=== PATIENT | female | born 1970 | race Caucasian/White ===

== ENCOUNTER 2024-09-28 02:45 | Inpatient (IN) | payer OTHER, SELFPAY ==
[2024-09-27 22:44] VITALS: BP 104/77
[2024-09-27 23:59] VITALS: BMI 27.1
[2024-09-28] VITALS (19 sets, daily range): BP systolic 82–116; BP diastolic 46–71; BMI 27.2
[2024-09-28] MEDS: TORADOL 30 MG IV (00:03)
[2024-09-28 00:05] LABS: % Basophils 0.8 % (0-2); % Eosinophils 1.9 % (0-6); % Immature Granulocytes 0.6 % (0-0.5); % Lymphocytes 33.8 % (20.5-51.1); % Monocytes 10.2 % (1.7-9.3); % Neutrophils 52.7 % (42.2-75.2); Absolute Basophils 0.1 10^3/uL (0-0.2); Absolute Eosinophils 0.1 10^3/uL (0-0.7); Absolute Lymphocytes 2.5 10^3/uL (1.2-3.4); Absolute Monocytes 0.7 10^3/uL (0.1-0.6); Absolute Neutrophils 3.8 10^3/uL (1.4-6.5); Hematocrit 36.4 % (37.0-47.0); Hemoglobin 12.3 g/dL (12.0-16.0); Mean Corp Hgb Conc. 33.8 g/dL (33.0-37.0); Mean Corpuscular Hgb 29.7 pg (27.0-31.0); Mean Corpuscular Volume 87.9 fL (81.0-99.0); Mean Platelet Volume 9.3 fL (7.4-10.4); Nucleated Red Blood Cells % 0 %; Platelet Count 242 10^3/uL (130-400); Red Blood Cell Count 4.14 10^6/uL (4.20-5.40); Red Cell Dist. Width 12.8 % (11.5-14.5); White Blood Cell Count 7.3 10^3/uL (4.8-10.8)
[2024-09-28 00:06] LABS: Urine Albumin 1+ (Neg - Trace); Urine Bilirubin Negative (Negative); Urine Character Slightly Cloudy (Clear); Urine Color Yellow; Urine Glucose Negative (Negative); Urine Ketone Negative (Negative); Urine Leukocyte 2+ (Negative); Urine Nitrite Positive (Negative); Urine Occult Blood 3+ (Negative); Urine Specific Gravity 1.025 (<1.030); Urine Urobilinogen Negative (Neg - 1+)
[2024-09-28 00:32] LABS: Urine Bacteria Many (Negative); Urine White Cell >100 /HPF (0-5)
[2024-09-28 00:57] LABS: ALT (SGPT) 29 U/L (0-35); AST (SGOT) 28 U/L (14-36); Albumin 3.8 g/dl (3.5-5.0); Alkaline Phosphatase 67 U/L (38-126); Blood Urea Nitrogen 16 mg/dl (7-17); Calcium 8.9 mg/dl (8.4-10.2); Carbon Dioxide 25 mmol/L (22-30); Chloride 103 mmol/L (98-107); Estimated Creatinine Clearance 90 ml/min; Glucose 113 mg/dl (70-99); Sodium 135 mmol/L (135-145); Total Bilirubin 0.4 mg/dl (0.2-1.3); Total Protein 6.5 g/dl (6.3-8.2); eGFR > 60.00
[2024-09-28 01:08] LABS: HCG, Serum Qualitative Screen Negative
[2024-09-28] MEDS: ROCEPHIN 1000 MG IV (01:16)
--- NOTE | 2024-09-28 01:49 | ED.GENMED ---
History of Present Illness
General
Chief Complaint: Flank Pain
Source: patient
Exam Limitations: none
Time Seen by Provider: 09/27/24 23:37
History of Present Illness
History of Present Illness:
This is a 54 year old female that come in with c/o right flank and lower abd pain. States that she has pain that comes from the back around to the abd. State that there is pressure when she urinated. States that she was seen at [facility] and had
surgery on Saturday with a stent place for a 7 mm stone on the left. States that the stent was not in the right place and she pulled it out. States that she has had chills, nausea, diarrhea, headache and urinary burning.
Past History
Past History
ED Past Medical History: None, Psychiatric (Anxiety, ) and Other (Renal calculus); Negative Asthma, HTN, Hypercholesterolemia or NIDDM
ED Past Surgical History: Appendectomy and Urological (Left renal stent removed)
Social History
Tobacco: Non-smoker
Alcohol: Occasional
Personal: Other ()
Living: with family
Review of Systems
Review of Systems
All Other Systems: ROS reviewed and negative except as documented in HPI and ROS
Constitutional: Reports chills; Denies fever
EENT: Reports no symptoms
Respiratory: Reports no symptoms; Denies cough or trouble breathing
Cardiac: Reports no symptoms; Denies chest pain
ABD/GI: Reports abdominal pain, nausea and diarrhea; Denies vomiting
: Reports dysuria and flank pain (right sided)
Musculoskeletal: Reports no symptoms
Skin: Reports no symptoms
Neurological: Reports headache; Denies dizzy
Psychiatric: Reports no symptoms
Phy Exam
General Physical Exam
General Presentation: mild distress
General age: appears stated age
General Skin: warm and dry
General Habitus: normal
General Mental: alert
General Hydration: appears well hydrated
ENT Exam
ENT Exam: TM's normal, pharynx normal and neck supple
Eye Exam
Eye Exam: EOMI
Cardiovascular Exam
Cardiovascular Exam: regular rate/rhythm, no edema, no murmur and normal peripheral pulses
Pulmonary Exam
Pulmonary Exam: lungs clear, no respiratory distress, no rales, chest non tender, no crackles, no rhonchi, no wheezing and no cough
Gastrointestinal Exam
Gastrointestinal Exam: normal bowel sounds, soft, no organomegaly, no pulsatile mass, non distended, cva tenderness (Right sided) and tender (Right lower tenderness with palpation)
Musculoskeletal Exam
Musculoskeletal Exam: full ROM and no edema
Skin Exam
Skin Exam: normal color, warm/dry, no rash and no petechia
Psychiatric Exam
Psychiatric Exam: normal mood/affect
Course
Orders/Labs/Results
Orders:
Orders
09/27/24 23:45
Urinalysis Reflex To Culture Urgent
Date Specimen was Collected: 09/27/24
Time Specimen was Collected: 23:36
Urine Microscopic Reflex Cult Urgent
Urine Culture Urgent
LESLEY Source: U
Specimen Description:
Date Specimen was Collected: 09/27/24
Time Specimen was Collected: 23:36
09/27/24 23:51
0.9% Sodium Chloride 1000 ml [Nss] 1,000 ml IV BOLUS
Ketorolac [Toradol] 30 mg IV NOW STA
Test Result ONCE
09/27/24 23:56
Complete Blood Count/With Diff Urgent
09/28/24 00:02
CT Abd/pel Without Iv Or Oral Urgent
Reason For Exam: right flank pain
09/28/24 00:38
Comprehensive Metabolic Panel Urgent
HCG, Serum Qualitative Screen Urgent
09/28/24 00:58
CefTRIAXone [Rocephin] 1,000 mg IV NOW STA
09/28/24 01:10
Sterile Water [Sterile Water For Injection] 10 ml .[address]TE .[facility]
09/28/24 02:09
HYDROmorphone [Dilaudid] 1 mg IV NOW STA
Ondansetron Injectable [Zofran] 4 mg IV NOW STA
09/28/24 02:23
Consult Urology [UROLOGY CONSULT] Urgent
Consulting Provider: Antwan Martínez
Was physician already notified: Yes
09/28/24 02:30
Admit/Transfer Patient As Directed
Co-Sign Provider:
Level of Care: Inpatient admission
Assign to:: Medical/Surgical
Physician / Group: Andrew
Diagnosis: Ureterolithiasis, UTI
Reason for Hospitalization: Ureterolithiasis, UTI
Expected length of stay greater than two midnights?: Yes
ELOS- Estimated Length of Stay in days: 2
I certify the patient meets the requirements for IP care: Yes
Code Status As Directed
Resuscitation Status: Full Code
PRN Pain Medication Management As Directed
May give lesser potent ordered pain med per pt: Yes
preference::
Protocol:: Medication orders for pain may be administered in a
manner that supports deferring to patient preference
when the pt is:
- Requesting an ordered lesser potent pain medication.
Least to most potent pain medications are defined
as: acetaminophen < NSAID < tramadol < opioids
(morphine, oxycodone, hydromorphone).
- Requesting a lesser dose of the same medication IF
ORDERED.
- Requesting a less intrusive route of administration
if both routes are prescribed by the provider (PO <
IV).
Abnormal Lab Results
09/27/24 09/27/24 09/28/24
23:45 23:56 00:38
RBC 4.14 L 10^6/uL
(4.20-5.40)
Hct 36.4 L %
(37.0-47.0)
Absolute Monos (auto) 0.7 H 10^3/uL
(0.1-0.6)
Immature Gran % 0.6 H %
(0-0.5)
Monocytes % 10.2 H %
(1.7-9.3)
Glucose 113 H mg/dl
(70-99)
Ur Occult Blood Reflex 3+ A
(Negative)
Urine Nitrite (Reflex) Positive A
(Negative)
Leukocyte Esterase Rfl 2+ A
(Negative)
Urine RBC 3-6 A /HPF
(0-2)
Urine WBC (Reflex) >100 A /HPF
(0-5)
Urine Bacteria (Reflex) Many A
(Negative)
Urine Albumin (Reflex) 1+ A
(Neg - Trace)
09/27/24 23:56
09/28/24 00:38
Hyperglycemia. Urine positive for infection.
Vital Signs
Initial and Last Documented VS:
Initial Vital Signs
Temp Pulse Resp BP Pulse Ox
98.5 F 90 16 104/77 99
09/27/24 22:44 09/27/24 22:44 09/27/24 22:44 09/27/24 22:44 09/27/24 22:44
Last Documented Vital Signs
Temp Pulse Resp BP Pulse Ox
98.5 F 63 14 106/54 97
09/27/24 22:44 09/28/24 02:34 09/28/24 02:34 09/28/24 02:34 09/28/24 02:34
MDM/Problems Addressed
Differential Diagnosis Includes:
renal calculus, UTI
MDM/Problems Addressed:
This is a 54 year old female that comes in with c/o right flank pain that comes around to the right lower abd.
Will get labs, urine. given IV fluids and medicate for pain.
Message sent to Dr. Martínez about CT results. Agrees that patient will need admission for IV antibiotics and he will see patient in the morning. He would like the Hospitalist to admit. Back into see patient. Reviewed CT results. Explained that she
will be admitted. Urologist to see patient in the morning. Hospitalist notified.
Chronic conditions affecting care:
Renal calculus
Acute Exacerbation and/or Progression of Chronic Illness:
Renal calculus
*Radiology
Radiology exam reviewed: radiology read reviewed (CT- 3 mm stone at the right UVJ, and clustered stones measuring up to 10mm at the right UPJ, with mild right hydronephrosis. No bowel obstruction. Gallbladder and appendix Incidentals: Moderate
stool burden. Hepatic hypodensities, too small to characterize. No abdominal aortic aneurysm. ) and all reviewed NAD by ED Provider (CT cont- No acute osseous abnormality. No acute abnormality within the visualized lungs. Bibasilar atelectasis. No
acute abnormality within the visualized soft tissues. )
*Pulse Oximetry
Patient hypoxic: no
*EKG
Interpreted by ED Provider?: NA
Rate: EKG- N/A
*Prepress Specialist Interpretation
Rate: Prepress Specialist- N/A
*Critical Care Note
Total Time (30-74mins, 75-104mins- exclusive of procedures): Not Applicable
ED Attending Note
-
Portions of this chart may have been created with voice recognition software.� Occasional wrong word or��sound alike� substitutions may have occurred due to the inherent limitations of voice recognition software.
Discharge Plan
Departure
Patient Disposition: Admit
Date of Disposition: 09/28/24
Time of Disposition: 02:12
Admit to: Med/Surg
Presentation/result/management discussed w/ accepting MD/DO: Hospitalist
Patient with high blood pressure during this ER visit?: No
Condition: Good
Covid-19: Not Applicable
Discharge Problem:
Right renal stone, Urinary tract infection
Interventions
Interventions:
*Risk Screen - Suicide Last Done: 09/27/24 22:44
*General Assessment Last Done: 09/27/24 23:46
*Neglect/Abuse Screening Last Done: 09/27/24 22:44
ED- Fall Risk Assessment Last Done: 09/28/24 00:10
*ED COVID-19 Vaccine History Last Done: 09/27/24 23:59
IY-Uhybuz-Gnlcaqfbrb Assessment Last Done: 09/28/24 00:10
ED-Female Genitourinary Assessment Last Done: 09/28/24 00:10
[2024-09-28] MEDS: ZOFRAN 4 MG IV ×2 (02:31→18:14)
--- NOTE | 2024-09-28 02:32 | HPS.HSE ---
Family Physician
-
Family Physician: Setw Chau, DO
Chief Complaint
-
Abd Pain
History of Present Illness
Patient is a 54y F with PMH significant for nephrolithiasis who presents to ED complaining of abd pain. Patient states that she initially developed pain on the R side on 08/20. She was evaluated at [facility] and advised that she had a small
(1mm) R sided kidney stone which she should pass without issue. She then developed L sided abdominal pain and returned to the ED at [facility] (about 2 weeks ago). She was admitted at that time for 7mm stone on the L and underwent cyst / stent
placement (09/17/24). Following discharge, patient developed burning with urination and noted that the stent was 'hanging out'. She contacted Urology at [facility] and was reportedly advised to pull the stent at home - which she did on 09/21.
Today, patient again developed R sided abdominal pain and continued dysuria.
She denies any fevers / chills, N/V/D, etc.
She presented to the ED for evaluation where she is noted to have multiple R sided ureteral stones with obstruction.
Medical History
Past Medical History
Past Medical History: Reports Other
Additional Past Medical History:
Nephrolithiasis
Past Surgical History: Reports Other
Additional Past Surgical History:
Ureteral Stent / Lithotripsies x 4 total
Appendectomy
Social History
Tobacco: Non-smoker
Alcohol: None
Drug: None
Family History
Family History: Not pertinent
Allergies / Home Medications
Allergies reflects when Allergies were last updated in [email or web address].
Home Medications with original date entered in [email or web address]
Allergy/Medication List:
Allergies
Allergy/AdvReac Type Severity Reaction Status Date / Time
No Known Allergies Allergy Verified 09/27/24 22:46
Home Medications
No Meds [No Current Medications] 09/27/24
Review of Systems
-
History Source: Patient
A 12 point ROS was completed and negative except as noted: Yes
Constitutional: Denies Fever or Chills
Respiratory: Denies Cough or Trouble Breathing
Cardiac: Denies Chest Pain or Palpitations
Abdomen/GI: Reports Abdominal Pain; Denies Nausea, Vomiting or Diarrhea
: Reports Dysuria, Frequency and Flank Pain; Denies Urgency
Musculoskeletal: Denies Joint Pain or Edema
Neurological: Denies Dizzy or Headache
Psych: Denies Depression or Anxiety
Physical Exam
Vital Signs
Vital Signs
Temp Pulse Resp BP Pulse Ox
98.5 F 77 14 99/48 97
09/27/24 22:44 09/28/24 01:20 09/28/24 01:20 09/28/24 01:20 09/28/24 01:20
Physical Exam
General: Other (54y F in no acute distress.)
HEENT: Moist mucous membranes
Respiratory: Clear; No Wheezes, Rales or Rhonchi
Cardiac: S1/S2 and Regular Rhythm; No Murmur
GI: Soft, Non Distended, Normal Bowel Sounds and Other (Mild RLQ tenderness without guarding.)
Genito-urinary: No costovertebral tender
Musculoskeletal: No Clubbing, No Cyanosis and No Edema
Neuro: AO x 3
Laboratory Results
-
09/27/24 23:56
09/28/24 00:38
Laboratory Results
Total Bilirubin 0.4 mg/dl (0.2-1.3) 09/28/24 00:38
AST 28 U/L (14-36) 09/28/24 00:38
ALT 29 U/L (0-35) 09/28/24 00:38
Alkaline Phosphatase 67 U/L (38-126) 09/28/24 00:38
Impression/Plan
-
A/P: Patient is a 54y F with PMH significant for kidney stones who presents to ED complaining of abdominal pain.
Right Ureterolithiasis with Obstruction
UTI secondary to the above
- Admit for further evaluation and treatment.
- Patient is afebrile and non-toxic. Does not meet criteria for SIRS / sepsis.
- Continue ceftriaxone pending culture data.
- Strain urine, tamsulosin, pain control, IVFs.
- Urology consulted for management of stone burden.
No other active / chronic health issues.
DVT Prophylaxis: SCDs
Code Status: Full
[2024-09-28] MEDS: DILAUDID 1 MG IV (02:34)
[2024-09-28] MEDS: NSS 1000 IV ×4 (03:55→17:06)
[2024-09-28] MEDS: DILAUDID 0.5 MG IV ×3 (04:11→17:14)
--- NOTE | 2024-09-28 04:37 | PTCARENOTE ---
pt admitted to room 2121. inst customer resolution specialist magaña and YESSI. Hat placed in toilet/strainer in bathroom. pt aware all urine must be strained. pt inst to call for assistance to bathroom since receiving iv narcotics. pt verb understanding.
--- NOTE | 2024-09-28 07:15 | CONS.URO ---
Consultation
-
Requesting Provider: [place]
Performing Provider: Mauricio
Reason for Consultation: cUTI, obstructing right ureteral stones
Medical History
History of Present Illness
54F w/ recent h/o nephrolithiasis treated [facility] as follows:
- new onset right flank pain 08/20
- seen in [facility] D - advised she had a 'small 1 mm right kidney stone which she could pass w/o issue'
- developed left renal colic - returned to [facility] ED (mid 08/2024) - admitted w/ 7 mm obstructing left ureteral stone
- s/p right ureteroscopy/laser lithotripsy/stent placement (09/17/24)
- stent was 'hanging out' after discharge - contacted [facility] Urology and advised to pull stent at home on 09/21
Now presents w/ new onset right flank and abdominal pain w/ dysuria
Denies F/C/N/V.
Past Medical History
Past Medical History: Other (nephrolithiasis)
Past Surgical History: Appendectomy and Urological (lithotripsy x4, ureteral stent placement)
Social History
Tobacco: Non-smoker
Alcohol: None
Drug: None
Personal: Single
Living: With Family
Employment: Employed
Family History
Family History: Reviewed & Not Pertinent
Allergies/Home Medications
Allergies
Allergy/AdvReac Type Severity Reaction Status Date / Time
No Known Allergies Allergy Verified 09/27/24 22:46
Home Medications
�Medication �Instructions �Recorded �Confirmed �Type
No Meds [No Current Medications] 09/27/24 09/27/24 History
Review of Systems
-
History Source: Patient
A 12 point Review of Systems was completed except as noted: Yes
Physical Exam
Vital Signs
Vital Signs
Temp Pulse Resp BP Pulse Ox
98.1 F 60 17 82/46 99
09/28/24 07:11 09/28/24 07:11 09/28/24 07:11 09/28/24 07:11 09/28/24 07:11
Lab / Testing Results
Laboratory Results
09/28/24 06:45
09/28/24 06:45
Physical Exam
General: Well Developed, Well Nourished and No Apparent Distress
HEENT: Normocephalic and Anicteric
Respiratory: Non Labored Respirations
Cardiac: Regular Rhythm
Breast: Deferred by me
GI: Soft, Non Tender and Non Distended
Rectal: Deferred by Provider
Genito-urinary: No Costovertebral Tend
Skin: Warm and Dry
Neuro: AO x 3, No Motor Deficits and Nonfocal/Grossly Intact
Psych: Calm and Intact Judgement
Assessment / Plan
-
cUTI
Obstructing right ureteral stones
H/o nephrolithiasis
WBC WNL
Cr WNL
UA => >100 WBCs, +nitrites, many bacteria
UCx => pending
CT imaging indicates partially obstructing cluster of right UPJ stones, mild hydronephrosis, and small obstructing right UVJ stone
Given UA findings indicative of infection w/o clear criteria for urosepsis, advised stent placement to relieve right-sided obstruction and facilitate clearance of infection.
Reviewed risks, benefits, alternatives, and potential complications of cystoscopy/stent placement - including but not limited to urosepsis, bleeding, ureteral/bladder injury, risk of ureteral stricture formation, need for additional
procedures/surgeries.
- Continue IV Ceftriaxone pending UCx S/S
- NPO
- To OR this afternoon for cysto + right stent placement
- Surgical consent will be signed in preop holding
- Outpatient F/U for definitive right-sided stone surgery
D/w patient.
D/w Hospitalist.
Data Reviewed
-
Total Time Spent with Patient (in minutes): 35
CT Scan: Image personally visualized and interpreted and Discussed with Patient
Lab Data: Labs Reviewed, Discussed with Physician and Discussed with Patient
Old Records: Reviewed
[2024-09-28 07:20] LABS: Hematocrit 34.4 % (37.0-47.0); Hemoglobin 11.3 g/dL (12.0-16.0); Mean Corp Hgb Conc. 32.8 g/dL (33.0-37.0); Mean Corpuscular Hgb 29.8 pg (27.0-31.0); Mean Corpuscular Volume 90.8 fL (81.0-99.0); Mean Platelet Volume 9.4 fL (7.4-10.4); Platelet Count 197 10^3/uL (130-400); Red Blood Cell Count 3.79 10^6/uL (4.20-5.40); Red Cell Dist. Width 12.8 % (11.5-14.5); White Blood Cell Count 4.6 10^3/uL (4.8-10.8)
[2024-09-28 07:27] LABS: Blood Urea Nitrogen 15 mg/dl (7-17); Calcium 8.1 mg/dl (8.4-10.2); Carbon Dioxide 25 mmol/L (22-30); Chloride 108 mmol/L (98-107); Estimated Creatinine Clearance 90 ml/min; Glucose 104 mg/dl (70-99); Potassium 4.2 mmol/L (3.5-5.1); Sodium 138 mmol/L (135-145); eGFR > 60.00
[2024-09-28] MEDS: ProAmatine 5 MG PO (08:32)
[2024-09-28] MEDS: FLOMAX 0.4 MG PO (08:32)
--- NOTE | 2024-09-28 10:23 | CM ---
Patient seen at bedside.
IA completed.
Case consult completed. Resources given Advance Directives.
Lives at home with daughter, in an apartment, 2 steps to enter
PLOF: Independent, drives, no assistive device
Denies DME
Denies Insecurities
OR this afternoon - cysto R stent placement
PCP: Stew Chau
Pharmacy: [facility] [place]
PLAN: Home, currently anticipate no needs
--- NOTE | 2024-09-28 11:33 | W.PN.UPDATE ---
Update Note
Progress Note Update
Seen and examined independent of pulmonary physician. Nonbillable note.
States of some nausea and mild episode of vomiting
Remains with flank pain
General: in no acute distress
HEENT: Moist mucous membranes
Respiratory: Clear; No Wheezes, Rales or Rhonchi
Cardiac: S1/S2 and Regular Rhythm; No Murmur
GI: Soft, Non Distended, Normal Bowel Sounds and Other (Mild RLQ tenderness without guarding.)
Genito-urinary: No costovertebral tender
Musculoskeletal: No Clubbing, No Cyanosis and No Edema
Neuro: AO x 3
A/P: Patient is a 54y F with PMH significant for kidney stones who presents to ED complaining of abdominal pain.
Right Ureterolithiasis with Obstruction
History of calcium oxalate renal stones
UTI secondary to the above
- Patient is afebrile and non-toxic. Does not meet criteria for SIRS / sepsis.
- Continue ceftriaxone pending culture data.
- Strain urine, tamsulosin if blood pressure can tolerate it, pain control, IVFs. Antinausea meds as needed.
- Urology consulted with plan for cystoscopy plus right stent placement.
No other active / chronic health issues.
DVT Prophylaxis: SCDs
Code Status: Full
--- NOTE | 2024-09-28 13:35 | W.SUR.PREOP ---
Pre-Operative Surgical Note
-
I have examined this patient prior to the performance of the scheduled procedure.
The patient's condition is unchanged from the time of the current History and
Physical and the patient is able to undergo the scheduled procedure.
--- NOTE | 2024-09-28 14:25 | W.IMMPOSTOP ---
Surgical Immed Post Op Note
-
Primary Surgeon: Mauricio
Pre-op Diagnosis: Obstructing right UVJ stone and UPJ stone cluster w/ hydronephrosis, cUTI
Post-op Diagnosis: Same
Procedure Performed: cystoscopy + right stent placement
Anesthesia Type: LMA
Specimen / Cultures: None/None
Estimated Blood Loss: Negligible
Drains: 4.7Fr x 22 cm JJ right ureteral stent
Complications: None
Operative Findings:
Stenotic urethral meatus requiring gentle dilation to pass cystoscope - inflammatory changes to bladder urothelium c/w cystitis.
No bladder tumors/stones.
Final KUB and cystoscopy confirming appropriate right ureteral stent position.
[2024-09-28] MEDS: DETROL LA 4 MG PO (15:18)
[2024-09-28] MEDS: Pyridium 200 MG PO (15:18)
--- NOTE | 2024-09-28 16:30 | W.PN.UPDATE ---
Update Note
Progress Note Update
Obstructing right UVJ stone + UPJ stone cluster
UTI - suspected based on UA
09/28: s/p cystoscopy + right stent placement (4.7Fr x 22 cm)
Plan:
- Transition to PO antibiotic treatment course pending UCx S/S
- F/U w/ Dr. Martínez in 1-2 weeks for preop visit to schedule right ULS
Discussed plan of care w/ pt and w/ daughter via telephone (Desiree).
[2024-09-29] MEDS: DILAUDID 0.5 MG IV ×2 (00:17→08:02)
--- NOTE | 2024-09-29 01:13 | PTCARENOTE ---
Pt states allergy to toradol and tramadol. She states it causes her to feel 'jittery' and 'anxious.' Added medications to allergy list per pt request.
[2024-09-29] MEDS: STERILE WATER FOR INJECTION 10 ML IV (01:58)
[2024-09-29] MEDS: ROCEPHIN 1000 MG IV (01:58)
[2024-09-29 03:10] VITALS: BP 104/73
[2024-09-29] MEDS: TYLENOL 650 MG PO ×2 (08:01→18:11)
[2024-09-29 08:30] VITALS: BP 89/55
--- NOTE | 2024-09-29 10:24 | CM ---
CM reviewed chart, patient seen bedside, reports no needs/concerns to CM at this time. CM will continue to follow for all discharge planning needs.
Plan; home with family, no needs likely.
--- NOTE | 2024-09-29 10:59 | W.PN.URO.CBU ---
Today's Communication / Plan
-
- Transition to PO antibiotic treatment course pending UCx S/S
- F/U w/ Dr. Martínez in 1-2 weeks for preop visit to schedule right ureteroscopy/laser lithotripsy
Assessment / Plan
-
54F with Obstructing right UVJ stone + UPJ stone cluster
UTI suspected based on UA
09/28: s/p cystoscopy + right stent placement (4.7Fr x 22 cm)
Plan:
- Transition to PO antibiotic treatment course pending UCx S/S
- F/U w/ Dr. Martínez in 1-2 weeks for preop visit to schedule right ureteroscopy/laser lithotripsy
Diagnosis
-
Date of Service: September 29, 2024
-
Patient Diagnosis:
R ureteral/renal stones
UTI
Post Op s/p R ureteral stent
Subjective
-
some low abd/pelvic pain but improved from pre stent
minimal frequency/urgency
some subjective chills
Objective
-
Vital Signs
Temp Pulse Resp BP Pulse Ox
98.1 F 57 16 89/55 94
09/29/24 08:30 09/29/24 08:30 09/29/24 08:30 09/29/24 08:30 09/29/24 08:30
Intake and Output
09/28/24 09/29/24 09/30/24
06:59 06:59 06:59
Intake Total 300 / 300 2160 / 2160
Output Total 1270 / 1270
Balance 300 / 300 890 / 890
Intake:
Oral fluids 960 / 960
IV fluids (Total) 300 / 300 1200 / 1200
Output:
Urine, Voided 1270 / 1270
Other:
Number of approximated MODERATE 3
amounts of urine
Number of approximated LARGE 1
amounts of urine
Laboratory Results
09/28/24 06:45
09/28/24 06:45
Physical Exam
-
General - well developed, well nourished, no acute distress
Chest - clear, unlabored
Abdomen - soft, non-tender
--- NOTE | 2024-09-29 11:21 | W.PN.HOSP.TC ---
Today's Communication/Plan
-
Continue with ceftriaxone
Await final susceptibility results
Assessment / Plan
Assessment / Plan
General: in no acute distress
HEENT: Moist mucous membranes
Respiratory: Clear; No Wheezes, Rales or Rhonchi
Cardiac: S1/S2 and Regular Rhythm; No Murmur
GI: Soft, Non Distended, Normal Bowel Sounds and mild suprapubic pain
Genito-urinary: No costovertebral tender
Musculoskeletal: No Clubbing, No Cyanosis and No Edema
Neuro: AO x 3
A/P: Patient is a 54y F with PMH significant for kidney stones who presents to ED complaining of abdominal pain.
Right Ureterolithiasis with Obstruction
History of calcium oxalate renal stones
UTI secondary to the above
- Patient is afebrile and non-toxic. Does not meet criteria for SIRS / sepsis.
- Continue ceftriaxone . Preliminary urine culture with E. coli. Await susceptibility results
- DC further fluids but antinausea meds as needed.
- Urology consulted status post cystoscopy with right stent placement. Outpatient follow-up for definitive stone management
No other active / chronic health issues.
DVT Prophylaxis: SCDs/lovenox
Code Status: Full
Anticipated Discharge: Within 24 hours
Subjective/Interval History
-
Date of Service: September 29, 2024
states of some bladder spasms
Objective Data
-
Vital Signs:
Vital Signs
Temp Pulse Resp BP Pulse Ox
98.1 F 57 16 89/55 94
09/29/24 08:30 09/29/24 08:30 09/29/24 08:30 09/29/24 08:30 09/29/24 08:30
I&O
09/28/24 09/29/24 09/30/24
06:59 06:59 06:59
Intake Total 300 / 300 2160 / 2160
Output Total 1270 / 1270
Balance 300 / 300 890 / 890
[2024-09-29 15:53] VITALS: BP 95/56
[2024-09-29] MEDS: LOVENOX 40 MG SC (18:11)
[2024-09-29] MEDS: Pyridium 200 MG PO ×2 (18:24→22:55)
--- NOTE | 2024-09-29 20:14 | PTCARENOTE ---
Patient being transferred to 2117 by wheelchair. Report given.
--- NOTE | 2024-09-29 20:27 | PTCARENOTE ---
Received pt from [address] [place] [address], [address], very pleasant. Oriented to new room, no needs at this time. Assessment on going.
[2024-09-29] MEDS: ROXICODONE 5 MG PO (21:02)
[2024-09-29 23:00] VITALS: BP 113/74
[2024-09-30] MEDS: ROXICODONE 5 MG PO ×4 (01:04→19:39)
[2024-09-30] MEDS: STERILE WATER FOR INJECTION 10 ML IV (01:05)
[2024-09-30] MEDS: ROCEPHIN 1000 MG IV (01:05)
[2024-09-30 08:00] VITALS: BP 116/75
--- NOTE | 2024-09-30 11:36 | W.PN.URO.CBU ---
Today's Communication / Plan
-
F/U culture sensitivity
Follow up with Dr. Martínez for ureteroscopy/stone removal outpatient
Assessment / Plan
-
54F with Obstructing right UVJ stone + UPJ stone cluster
UTI suspected based on UA
09/28: s/p cystoscopy + right stent placement (4.7Fr x 22 cm)
Plan:
- Fever curve trending down on abx
- E coli on urine culture. Transition to PO antibiotic treatment course pending sensitivities
- F/U w/ Dr. Martínez in 1-2 weeks for preop visit to schedule right ureteroscopy/laser lithotripsy
Diagnosis
-
Date of Service: September 30, 2024
-
Patient Diagnosis:
R ureteral/renal stones
UTI
Post Op s/p R ureteral stent
Subjective
-
some soreness from stent and dysuria
mild fever overnight
Objective
-
Vital Signs
Temp Pulse Resp BP Pulse Ox
98.0 F 56 16 116/75 95
09/30/24 08:00 09/30/24 08:00 09/30/24 08:00 09/30/24 08:00 09/30/24 08:00
Intake and Output
09/29/24 09/30/24 10/01/24
06:59 06:59 06:59
Intake Total 2160 / 2160
Output Total 1270 / 1270 1300 / 1300
Balance 890 / 890 -1300 / -1300
Intake:
Oral fluids 960 / 960
IV fluids (Total) 1200 / 1200
Output:
Urine, Voided 1270 / 1270 1300 / 1300
Other:
Number of approximated MODERATE 3
amounts of urine
Number of approximated LARGE 1
amounts of urine
Laboratory Results
09/28/24 06:45
09/28/24 06:45
Physical Exam
-
General - well developed, well nourished, no acute distress
Chest - clear
Abdomen - soft, non-tender
--- NOTE | 2024-09-30 11:58 | W.PN.HOSP.TC ---
Addendum entered and electronically signed by Faustino Barahona MD 09/30/24 12:25:
per urology-pt needs to be monitor for additional 24h. DC cancelled.
Original Note:
Today's Communication/Plan
-
po abx
op urology f/u
Assessment / Plan
Assessment / Plan
General: in no acute distress
HEENT: Moist mucous membranes
Respiratory: Clear; No Wheezes, Rales or Rhonchi
Cardiac: S1/S2 and Regular Rhythm; No Murmur
GI: Soft, Non Distended, Normal Bowel Sounds and mild suprapubic pain
Genito-urinary: No costovertebral tender
Musculoskeletal: No Clubbing, No Cyanosis and No Edema
Neuro: AO x 3
A/P: Patient is a 54y F with PMH significant for kidney stones who presents to ED complaining of abdominal pain.
Right Ureterolithiasis with Obstruction
History of calcium oxalate renal stones
UTI secondary to the above
- Patient is afebrile and non-toxic. Does not meet criteria for SIRS / sepsis.
- Continue ceftriaxone . Preliminary urine culture with E. coli. Pt eager to go home and get back to work. Will transition to po abx and f/u on the results.
- DC further fluids but antinausea meds as needed.
- Urology consulted status post cystoscopy with right stent placement. Outpatient follow-up for definitive stone management
No other active / chronic health issues.
DVT Prophylaxis: SCDs/lovenox
Code Status: Full
More than 30 minutes spent in discharge including
Final examination of the patient
Summarizing hospital stay
Instructions for continuing care to all relevant caregivers
Preparation of discharge records, prescriptions, and referral forms
Total time spent (in minutes): 52
Anticipated Discharge: Today
Subjective/Interval History
-
Date of Service: September 30, 2024
intermittent bladder spasms
tolerating po intake
wants to go home
Objective Data
-
Vital Signs:
Vital Signs
Temp Pulse Resp BP Pulse Ox
98.0 F 56 16 116/75 95
09/30/24 08:00 09/30/24 08:00 09/30/24 08:00 09/30/24 08:00 09/30/24 08:00
I&O
09/29/24 09/30/24 10/01/24
06:59 06:59 06:59
Intake Total 2160 / 2160
Output Total 1270 / 1270 1300 / 1300
Balance 890 / 890 -1300 / -1300
[2024-09-30 14:56] VITALS: BP 111/64
[2024-09-30] MEDS: LOVENOX 40 MG SC (17:51)
[2024-09-30 22:36] VITALS: BP 86/51
[2024-10-01 01:31] VITALS: BP 101/68
[2024-10-01] MEDS: ROCEPHIN 1000 MG IV (01:41)
[2024-10-01] MEDS: STERILE WATER FOR INJECTION 10 ML IV (01:42)
[2024-10-01] MEDS: ROXICODONE 5 MG PO (01:56)
[2024-10-01 07:50] VITALS: BP 132/79
[2024-10-01] MEDS: TYLENOL 650 MG PO (08:49)
[2024-10-01] MEDS: Pyridium 200 MG PO (08:49)
[2024-10-01] MEDS: ZOFRAN 4 MG IV (09:16)
--- NOTE | 2024-10-01 11:00 | CM ---
Reviewed the chart notes and spoke with the patient at the bedside. Patient anticipates being discharged to home with no needs identified at this time. The patient's daughter will provide transportation at discharge. CM continues to be available
to patient/family and is monitoring medical plan for needs at discharge.
Plan: Discharge to home when medically stable.
--- NOTE | 2024-10-01 11:15 | W.PN.HOSP.TC ---
Today's Communication/Plan
-
ID recs for abx course
Ertapenem
bowel regimen
Assessment / Plan
Assessment / Plan
General: in no acute distress
HEENT: Moist mucous membranes
Respiratory: Clear; No Wheezes, Rales or Rhonchi
Cardiac: S1/S2 and Regular Rhythm; No Murmur
GI: Soft, Non Distended, Normal Bowel Sounds and mild suprapubic pain
Genito-urinary: No costovertebral tender
Musculoskeletal: No Clubbing, No Cyanosis and No Edema
Neuro: AO x 3
A/P: Patient is a 54y F with PMH significant for kidney stones who presents to ED complaining of abdominal pain.
Right Ureterolithiasis with Obstruction
History of calcium oxalate renal stones
ESBL UTI
- Patient is afebrile and non-toxic. Does not meet criteria for SIRS / sepsis.
- DC Rocephin. Started Ertapenem. Susceptibility results noted. ? Bactrim as option.
- DC further fluids but antinausea meds as needed.
- Urology consulted status post cystoscopy with right stent placement. Outpatient follow-up for definitive stone management
- ID recs for abx.
Nausea due to constipation
-started bowel regimen
No other active / chronic health issues.
DVT Prophylaxis: SCDs/lovenox
Code Status: Full
Anticipated Discharge: Within 24 hours
Subjective/Interval History
-
Date of Service: October 01, 2024
states of some nausea
afebrile
having bladder spasms
Objective Data
-
Vital Signs:
Vital Signs
Temp Pulse Resp BP Pulse Ox
98.5 F 70 16 132/79 95
10/01/24 07:50 10/01/24 07:50 10/01/24 07:50 10/01/24 07:50 10/01/24 07:50
I&O
09/30/24 10/01/24 10/02/24
06:59 06:59 06:59
Intake Total 1090 / 1090 480 / 480
Output Total 1300 / 1300 2130 / 2130
Balance -1300 / -1300 -1040 / -1040 480 / 480
Data Reviewed
-
Total Time Spent with Patient (in minutes): 55
--- NOTE | 2024-10-01 11:49 | CON.ID ---
Consultation
-
Date/Time Consultation Requested: October 01, 2024 100
Date/Time Consultation Performed: October 01, 2024 1150
Requesting Provider: Dr. Faustino Barahona
Performing Provider: Dr. Terri Shah
Reason for Consultation: ESBL
Chief Complaint / Past History
Chief Complaint
Flank pain
History of Present Illness
54-year-old female with history of nephrolithiasis requiring interventions x 4 in the past who presented to the ER on September 28 complaining of flank pain. She was recently hospitalized at [facility] with obstructing left ureteral stone status
post laser lithotripsy and stent placement on September 17, 2024, stent was removed on September 21 since it was partially out. She then developed urinary incontinence, hematuria, right flank pain and burning with urination. She came to [facility] this time September 28. CAT scan showed obstructing right renal calculus. She was taken to the OR the same day status post cystoscopy, right stent placement. Urine culture positive for ESBL E. coli. Ceftriaxone changed to ertapenem
today. She feels improved today. No recent frequent UTI.
Past History
Additional Past Medical History:
Nephrolithiasis
Lithotripsies/stents
Appendectomy
Allergy History:
ketorolac [From Toradol] Allergy (Unverified 09/29/24 01:19)
Jittery/Anxiety
tramadol Allergy (Unverified 09/29/24 01:19)
Jittery/Anxiety
Medications Reviewed: Yes
Current Antibiotics:
s/p ceftriaxone
Ertapenem
Social History
Tobacco: Non-Smoker
Alcohol: None
Drug: None
Family History
Family History: Not Pertinent
Review of Systems
Review of Systems
General: Negative Fever, Chills or Change in Appetite
HEENT: Negative Sinus Problems, Headache or Pharyngitis
Cardiovascular: Negative Chest Pain or Dyspnea
Respiratory: Negative Dyspnea or Cough
Gasteroenterology: Negative Nausea, Vomiting or Diarrhea
Endocrine: Negative Weakness
Skin / Hair / Nails: Negative Rash
Neurological: Negative Dizziness
All systems: All other systems were reviewed and were negative
Vital Signs
Temp Pulse Resp BP Pulse Ox
98.5 F 70 16 132/79 95
10/01/24 07:50 10/01/24 07:50 10/01/24 07:50 10/01/24 07:50 10/01/24 07:50
Physical Exam
Physical Exam
Constitutional: No Acute Distress and Comfortable
Cardiovascular: Regular Rate and S1/S2
Pulmonary: Clear
Gastrointestinal: Soft, Non Tender, Non Distended and Normal Bowel Sounds
Genito-Urinary: Negative CVA Tenderness
Extremities: Negative Edema
Neurological: AO x 3
Lab / Diagnostic Study Results
09/28/24 06:45
09/28/24 06:45
Abs Immat Gran (auto) 0.0 10^3/uL (0-0.05) 09/27/24 23:56
Absolute Neuts (auto) 3.8 10^3/uL (1.4-6.5) 09/27/24 23:56
Absolute Lymphs (auto) 2.5 10^3/uL (1.2-3.4) 09/27/24 23:56
Absolute Monos (auto) 0.7 10^3/uL (0.1-0.6) H 09/27/24 23:56
Absolute Basos (auto) 0.1 10^3/uL (0-0.2) 09/27/24 23:56
Immature Gran % 0.6 % (0-0.5) H 09/27/24 23:56
Neutrophils % 52.7 % (42.2-75.2) 09/27/24 23:56
Lymphocytes % 33.8 % (20.5-51.1) 09/27/24 23:56
Monocytes % 10.2 % (1.7-9.3) H 09/27/24 23:56
Eosinophils % 1.9 % (0-6) 09/27/24 23:56
Basophils % 0.8 % (0-2) 09/27/24 23:56
Ur Squamous Epith Cells 3-5 /LPF (Few) 09/27/24 23:45
Microbiology Results
Micro:
09/27/24 23:45 Urine Culture - Final
Urine Escherichia coli - ESBL
09/28/24 CT a/p: 0.3 cm calculus at the right ureterovesical junction with mild right hydroureteronephrosis. Additional collection of small stones most likely layering in the right renal pelvis at the approximate level of the right ureteropelvic
junction.
Assessment / Plan
# Complicated ESBL-E.coli UTI
# Right obstructive uropathy s/p ureter stent 09/28/24.
- Can dc home on Bactrim DS 1 tab po bid x 14d.
Care Review
Plan reviewed with: Physician (Dr. Barahona)
[2024-10-01] MEDS: INVANZ 60 MG IV (11:56)
[2024-10-01] MEDS: SENOKOT-S 1 TABLET PO (11:56)
[2024-10-01] MEDS: MILK OF MAGNESIA 30 ML PO (11:56)
[2024-10-01 12:00] VITALS: BP 124/75
--- NOTE | 2024-10-01 12:26 | W.DCSUMMARY ---
Discharge Summary
Discharge Data
Date of Admission: 09/28/24
Date of Discharge: 10/01/24
-
Pending Results: No
Hospital Course
54 year-old female with past medical history of kidney stone status post intervention presenting from home with complaint of right flank pain.� Also underwent CT abdomen pelvis which showed patient had Right Ureterolithiasis with Obstruction.�
Eval by urology and underwent to the operating room. status post cystoscopy with right stent placement. Outpatient follow-up for definitive stone management.� Urine culture with ESBL. Stop ceftriaxone and give 1 dose of IV ertapenem. Infectious
disease consulted recommended patient can be switched to p.o. Bactrim for twice daily dosing for 14 days. Follow -up outpatient with Dr. Martínez. Also with some nausea secondary to constipation and was started on bowel regimen. Tolerating diet
otherwise. Patient remained afebrile and be discharged on p.o. Bactrim and no prior antibiotic allergies were discussed and noted..
Discharge Plan
-
Patient Disposition: Home (Routine Discharge)
Discharge Diagnosis/Procedures: Right ureteral stone status post cystoscopy and ureteral stent placement
Complicated ESBL Urinary tract infection
Condition: Fair
Diet: As tolerated
Activity: As tolerated
Driving Restrictions: As prior to admission
Referrals:
Stew Chau DO [Family Provider] - in less than 1 week
Antwan Martínez MD [Active] - (Please call [facility] after your discharge home to schedule a preop visit with Dr. Martínez in 1-2 weeks - Dr. Martínez will schedule you for outpatient kidney stone surgery and discuss the procedure with
you at that visit. )
Prescriptions:
New
sennosides-docusate sodium 8.6-50 mg Tablet
1 tab PO BID 14 Days Qty: 28 0RF
sulfamethoxazole-trimethoprim [Bactrim DS] 800-160 mg tablet
1 tab PO BID 14 Days Qty: 28 0RF
Discharge Orders:
Discharge Patient (As Directed); Ordered 10/01/24
Ordered By: Faustino Barahona
Discharge Date and Time
Print Language: BELARUSIAN
--- NOTE | 2024-10-01 13:29 | W.PN.URO.CBU ---
Today's Communication / Plan
-
Continue antibiotic
Outpatient follow up for stone procedure
Assessment / Plan
-
54F with Obstructing right UVJ stone + UPJ stone cluster
UTI suspected based on UA
09/28: s/p cystoscopy + right stent placement (4.7Fr x 22 cm)
Plan:
- ESBL E coli on urine culture. Recommend switch to PO Bactrim for total abx course per ID
- Stable for discharge from standpoint
- F/U w/ Dr. Martínez in 1-2 weeks for preop visit to schedule right ureteroscopy/laser lithotripsy
Diagnosis
-
Date of Service: October 01, 2024
-
Patient Diagnosis:
R ureteral/renal stones
UTI
Post Op s/p R ureteral stent
Subjective
-
no events
Objective
-
Vital Signs
Temp Pulse Resp BP Pulse Ox
98.5 F 70 16 132/79 95
10/01/24 07:50 10/01/24 07:50 10/01/24 07:50 10/01/24 07:50 10/01/24 07:50
Intake and Output
09/30/24 10/01/24 10/02/24
06:59 06:59 06:59
Intake Total 1090 / 1090 480 / 480
Output Total 1300 / 1300 2129
Balance -1300 / -1300 -1040 / -1040 480 / 480
Intake:
Oral fluids 1080 / 1080 480 / 480
IV piggybacks
Output:
Urine, Voided 1300 / 1300 2129
Other:
Number of approximated MODERATE 1
amounts of urine
How many times incontinent 1
MODERATE amount urine
Laboratory Results
09/28/24 06:45
09/28/24 06:45
Physical Exam
-
General - well developed, well nourished, no acute distress
== END 2024-10-01 14:44 | disposition home or self-care (01) | DRG 661 ==
LOC: 2 SOUTH 02:45
PROVIDERS: Clinical Nurse Specialist Family Health; ADMITTING PHYSICIAN Hospitalist; ATTENDING PHYSICIAN Hospitalist; CONSULT PHYSICIAN Surgery; EMERGENCY PHYSICIAN Student in an Organized Health Care Education/Training Program; FAMILY PHYSICIAN Family Medicine; OTHER PHYSICIAN Internal Medicine Infectious Disease
PROC: 0T768DZ Dilation of Right Ureter with Intraluminal Device, Via Natural or Artificial Opening Endoscopic (ICD-10-PCS; 2024-09-28)
DX: N20.2 Calculus of kidney with calculus of ureter (principal); N30.90 Cystitis, unspecified without hematuria
CPT/HCPCS: 74018; 74176; 76000; 80048; 80053; 81003; 81015; 84703; 85025; 85027; 87077; 87086; 87186; 96374; 96375; 99285; C2617; J1335

== ENCOUNTER 2024-10-09 15:25 | Inpatient (IN) | payer OTHER, SELFPAY ==
[2024-10-09 09:59] VITALS: BP 106/77
[2024-10-09 10:25] LABS: % Basophils 0.6 % (0-2); % Eosinophils 0.9 % (0-6); % Immature Granulocytes 0.4 % (0-0.5); % Lymphocytes 28.9 % (20.5-51.1); % Neutrophils 62.2 % (42.2-75.2); Absolute Basophils 0.1 10^3/uL (0-0.2); Absolute Eosinophils 0.1 10^3/uL (0-0.7); Absolute Lymphocytes 2.3 10^3/uL (1.2-3.4); Absolute Monocytes 0.6 10^3/uL (0.1-0.6); Hematocrit 38.8 % (37.0-47.0); Hemoglobin 13.1 g/dL (12.0-16.0); Mean Corp Hgb Conc. 33.8 g/dL (33.0-37.0); Mean Corpuscular Hgb 29.8 pg (27.0-31.0); Mean Corpuscular Volume 88.4 fL (81.0-99.0); Mean Platelet Volume 9.5 fL (7.4-10.4); Nucleated Red Blood Cells % 0 %; Platelet Count 246 10^3/uL (130-400); Red Blood Cell Count 4.39 10^6/uL (4.20-5.40); Red Cell Dist. Width 12.6 % (11.5-14.5); Urine Albumin 2+ (Neg - Trace); Urine Bilirubin 1+ (Negative); Urine Character Very Cloudy (Clear); Urine Color Brown; Urine Glucose Negative (Negative); Urine Ketone 1+ (Negative); Urine Leukocyte 2+ (Negative); Urine Nitrite Positive (Negative); Urine Occult Blood 4+ (Negative); Urine Specific Gravity 1.025 (<1.030); Urine Urobilinogen Negative (Neg - 1+)
[2024-10-09 10:40] LABS: ALT (SGPT) 18 U/L (0-35); AST (SGOT) 22 U/L (14-36); Albumin 4.1 g/dl (3.5-5.0); Alkaline Phosphatase 73 U/L (38-126); Blood Urea Nitrogen 28 mg/dl (7-17); Calcium 9.2 mg/dl (8.4-10.2); Carbon Dioxide 23 mmol/L (22-30); Chloride 105 mmol/L (98-107); Glucose 92 mg/dl (70-99); Potassium 4.5 mmol/L (3.5-5.1); Sodium 138 mmol/L (135-145); Total Bilirubin 0.5 mg/dl (0.2-1.3); Total Protein 6.9 g/dl (6.3-8.2); Urine Bacteria Few (Negative); Urine Squamous Cell 0-2 /LPF (Few); eGFR 54.13
[2024-10-09 10:41] LABS: Urine Red Blood Cell 90-100 /HPF (0-2)
[2024-10-09 11:23] VITALS: BMI 26.6
--- NOTE | 2024-10-09 11:32 | ED.GENMED ---
History of Present Illness
General
Chief Complaint: Flank Pain
Source: patient and records
Exam Limitations: none
Time Seen by Provider: 10/09/24 11:20
History of Present Illness
History of Present Illness:
54yoF with a history of kidney stones presenting for evaluation of flank pain. Patient was recently hospitalized from 09/28/2024 to 10/01/2024 for a kidney stone. Right ureteral stent was placed during that admission. Urine culture grew out ESBL E.
coli and she was discharged on a 14-day course of Bactrim. She was doing well for the first several days after discharge but reports worsening symptoms over the past few days. Patient reports right flank pain which radiates to the right lower
quadrant and vagina. The pain is severe. She was prescribed Toradol by the urology team and has been taking Tylenol without relief. She also reports chills but denies fevers. She is having significant pressure with urination as well as nausea
and vomiting. She called her urology team today and was advised to come to the ED for evaluation.
Past History
Past History
ED Past Medical History: None, Psychiatric (Anxiety, ) and Other (Renal calculus); Negative Asthma, HTN, Hypercholesterolemia or NIDDM
ED Past Surgical History: Appendectomy and Urological (Left renal stent removed)
Social History
Tobacco: Non-smoker
Alcohol: Occasional
Personal: Other ()
Living: with family
Phy Exam
Physical Exam
Physical Exam:
Appears uncomfortable, non-toxic
General Physical Exam
General age: appears stated age
General Skin: warm and dry
General Habitus: normal
General Mental: alert
ENT Exam
ENT Exam: normocephalic
Gastrointestinal Exam
Gastrointestinal Exam: soft, non distended and other (+RUQ tenderness and R CVA tenderness. Abdomen soft, non-distended. No guarding or rebound. )
Neurological Exam
Neurological Exam: alert
Solitario Coma Scale
Eye Opening: Spontaneous
Verbal Response: Oriented
Motor Response: Obeys Commands
GCS Total Score: 15
Skin Exam
Skin Exam: normal color and warm/dry
Psychiatric Exam
Psychiatric Exam: normal mood/affect
Course
Orders/Labs/Results
Orders:
Orders
10/09/24 10:14
Complete Blood Count/With Diff Urgent
Comprehensive Metabolic Panel Urgent
Urinalysis Reflex To Culture Urgent
Date Specimen was Collected: 10/09/24
Time Specimen was Collected: 10:05
Urine Microscopic Reflex Cult Urgent
Urine Culture Urgent
LESLEY Source: U
Specimen Description:
Date Specimen was Collected: 10/09/24
Time Specimen was Collected: 10:05
10/09/24 11:33
Ondansetron Injectable [Zofran] 4 mg .ROUTE .STK-MED ONE
10/09/24 11:35
0.9% Sodium Chloride 1000 ml [Nss] 1,000 ml IV BOLUS
HYDROmorphone [Dilaudid] 1 mg IV NOW STA
Ondansetron Injectable [Zofran] 4 mg IV NOW STA
10/09/24 11:45
CT Abd/pel Without Iv Or Oral Urgent
Comment:
Reason For Exam: R flank pain, ureteral stent in place
Piperacillin/Tazo 4.5 Gram [Zosyn] 4.5 gram in 100 ml IV NOW
10/09/24 12:26
Blood Culture Q30M
LESLEY Source: Blood/Venous
Specimen Description:
Blood Culture Q30M
LESLEY Source: Blood/Venous
Specimen Description:
10/09/24 13:45
Ondansetron Injectable [Zofran] 4 mg .ROUTE .STK-MED ONE
10/09/24 15:17
Admit/Transfer Patient As Directed
Co-Sign Provider:
Level of Care: Inpatient admission
Assign to:: Medical/Surgical
Physician / Group: veldanda
Diagnosis: infected right ureteral stone
Reason for Hospitalization: infected right ureteral stone
Expected length of stay greater than two midnights?: Yes
ELOS- Estimated Length of Stay in days: 2
I certify the patient meets the requirements for IP care: Yes
Code Status As Directed
Resuscitation Status: Full Code
PRN Pain Medication Management As Directed
May give lesser potent ordered pain med per pt: Yes
preference::
Protocol:: Medication orders for pain may be administered in a
manner that supports deferring to patient preference
when the pt is:
- Requesting an ordered lesser potent pain medication.
Least to most potent pain medications are defined
as: acetaminophen < NSAID < tramadol < opioids
(morphine, oxycodone, hydromorphone).
- Requesting a lesser dose of the same medication IF
ORDERED.
- Requesting a less intrusive route of administration
if both routes are prescribed by the provider (PO <
IV).
Abnormal Lab Results
10/09/24
10:14
BUN 28 H mg/dl
(7-17)
Creatinine 1.2 H mg/dL
(0.6-1.0)
Urine Ketones 1+ A
(Negative)
Ur Occult Blood Reflex 4+ A
(Negative)
Urine Nitrite (Reflex) Positive A
(Negative)
Urine Bilirubin 1+ A
(Negative)
Leukocyte Esterase Rfl 2+ A
(Negative)
Urine RBC 90-100 A /HPF
(0-2)
Urine WBC (Reflex) 11-15 A /HPF
(0-5)
Urine Bacteria (Reflex) Few A
(Negative)
Urine Albumin (Reflex) 2+ A
(Neg - Trace)
10/09/24 10:14
10/09/24 10:14
Vital Signs
Initial and Last Documented VS:
Initial Vital Signs
Temp Pulse Resp BP Pulse Ox
97.9 F 77 18 106/77 98
10/09/24 09:59 10/09/24 09:59 10/09/24 09:59 10/09/24 09:59 10/09/24 09:59
Last Documented Vital Signs
Temp Pulse Resp BP Pulse Ox
97.7 F 58 15 99/57 97
10/09/24 15:25 10/09/24 16:33 10/09/24 15:25 10/09/24 16:33 10/09/24 15:25
MDM/Problems Addressed
Differential Diagnosis Includes:
54yoF here with worsening R flank pain, chills, and n/v x 2 days. Recently hospitalized for kidney stone and ESBL UTI. Ureteral stent currently in place. Sent here by urology office. VSS. She is uncomfortable on exam and tearful. She is acutely
non-toxic appearing. +R CVA tenderness on exam. Differential diagnosis includes but is not limited to: UTI, pyelonephritis, stent colic
Initial ED plan: Labs and UA obtained in triage. Creatinine 1.2, up from 0.7 at time of discharge last week. White count within normal limits. UA is nitrite positive with 2+ leukocytes. Will discuss with urology. IV Dilaudid, Zofran, and fluid
bolus ordered for symptoms.
*Critical Care Note
Total Time (30-74mins, 75-104mins- exclusive of procedures): Not Applicable
Update Note
Update Note:
Case discussed with urology (Dr. Shannon). Urology suspecting infected stent and recommends blood cultures, CT, and admission. CT obtained which shows moderate R hydronephrosis. Stent is in satisfactory position. IV Zosyn ordered and patient
admitted for further management.
ED Attending Note
-
Portions of this chart may have been created with voice recognition software.� Occasional wrong word or��sound alike� substitutions may have occurred due to the inherent limitations of voice recognition software.
Discharge Plan
Departure
Patient Disposition: Admit
Date of Disposition: 10/09/24
Time of Disposition: 14:43
Presentation/result/management discussed w/ accepting MD/DO: Hospitalist
Discharge Problem:
Complicated urinary tract infection
Interventions
Interventions:
*Risk Screen - Suicide Last Done: 10/09/24 09:59
*General Assessment Last Done: 10/09/24 09:59
*Neglect/Abuse Screening Last Done: 10/09/24 09:59
ED- Fall Risk Assessment Last Done: 10/09/24 11:20
*ED COVID-19 Vaccine History Last Done: 10/09/24 11:19
CV-Oyliev-Rqhzyoujwj Assessment Last Done: 10/09/24 11:20
ED-Female Genitourinary Assessment Last Done: 10/09/24 11:20
[2024-10-09] MEDS: DILAUDID 1 MG IV (12:23)
[2024-10-09] MEDS: ZOFRAN 4 MG IV ×3 (12:23→21:15)
[2024-10-09] MEDS: NSS 1000 IV ×2 (12:23→18:22)
[2024-10-09] MEDS: ZOSYN 100 IV (12:36)
--- NOTE | 2024-10-09 15:19 | HPS.HSE ---
Family Physician
-
Family Physician: Stew Chau DO
Chief Complaint
-
right flank pain
History of Present Illness
54-year-old female past medical history of anxiety, renal stones, presenting for flank pain. He was hospitalized from 09/28 to 10/01 for kidney stone. Right ureteral stent was placed during that time. Urine culture grew ESBL E. coli patient was
discharged on 14-day course of Bactrim. She was doing well for the first several days on discharge but reports worsening symptoms over the past few days. She reports right flank pain which radiates down to right lower quadrant and vagina. Pain is
severe. Patient prescribed Toradol by urologist. Also with chills but no fever. Patient is having significant pressure with urination and nausea and vomiting. She had some clots in the urine.
Medical History
Past Medical History
Past Medical History: Reports Other (anxiety, renal stones)
Past Surgical History: Reports None
Social History
Tobacco: Non-smoker
Alcohol: None
Drug: None
Family History
Family History: Not pertinent
Allergies / Home Medications
Allergies reflects when Allergies were last updated in [employer].
Home Medications with original date entered in [employer]
Allergy/Medication List:
Allergies
Allergy/AdvReac Type Severity Reaction Status Date / Time
ketorolac [From Toradol] AdvReac Jittery/Anx Verified 10/09/24 09:58
iety
tramadol AdvReac Jittery/Anx Verified 10/09/24 09:58
iety
Home Medications
sulfamethoxazole 800 mg-trimethoprim 160 mg tablet (Bactrim DS) 1 tab PO BID 14 days #28 tabs 10/01/24
acetaminophen 325 mg tablet (Tylenol) 650 mg PO Q6HPRN PRN mild pain 10/09/24
docusate sodium 100 mg capsule (Colace) 100 mg PO Q48H 10/09/24
ibuprofen 200 mg tablet (Advil) 200 mg PO BIDPRN PRN mild pain 10/09/24
tamsulosin 0.4 mg capsule (Flomax) 0.4 mg PO DAILY 10/09/24
Review of Systems
-
History Source: Patient
A 12 point ROS was completed and negative except as noted: Yes
Constitutional: Reports No Symptoms
EENT: Reports No Symptoms
Respiratory: Reports No Symptoms
Cardiac: Reports No Symptoms
Abdomen/GI: Reports See HPI
: Reports See HPI
Musculoskeletal: Reports No Symptoms
Skin: Reports No Symptoms
Neurological: Reports No Symptoms
Endocrine: Reports No Symptoms
Hematologic/Lymphatic: Reports No Symptoms
Psych: Reports No Symptoms
Physical Exam
Vital Signs
Vital Signs
Temp Pulse Resp BP Pulse Ox
97.9 F 77 18 106/77 98
10/09/24 09:59 10/09/24 09:59 10/09/24 09:59 10/09/24 09:59 10/09/24 09:59
Physical Exam
General: Well Developed, Well Nourished and No Apparent Distress
HEENT: NormoCephalic, Moist mucous membranes and Atraumatic
Respiratory: Clear
Cardiac: S1/S2 and Regular Rhythm; No Murmur or Rub
GI: Soft, Non Tender, Non Distended and Normal Bowel Sounds; No Organomegaly
Rectal: Deferred by Provider
Musculoskeletal: No Clubbing, No Cyanosis and No Edema
Skin: No Rash
Neuro: Nonfocal/grossly intact
Laboratory Results
-
10/09/24 10:14
10/09/24 10:14
Laboratory Results
Total Bilirubin 0.5 mg/dl (0.2-1.3) 10/09/24 10:14
AST 22 U/L (14-36) 10/09/24 10:14
ALT 18 U/L (0-35) 10/09/24 10:14
Alkaline Phosphatase 73 U/L (38-126) 10/09/24 10:14
Data Reviewed
-
Lab Data: Labs Reviewed by me
Old Records: Reviewed
Impression/Plan
-
IMPRESSION:
PLAN:
# Right hydronephrosis/right hydroureter secondary to possibly infected right ureteral stent
# Recent ESBL E. coli UTI
-Patient not septic
-CT abdomen pelvis shows moderate right hydronephrosis, right hydroureter due to a right sided stent which is in satisfactory position with proximal loop within the region of the right renal pelvis and distal loop close in the urinary bladder, no
calculi present along the course
-IV fluids
-E. coli sensitive to Zosyn, continue Zosyn
-N.p.o.
-Zofran, Dilaudid
-Continue tamsulosin
# SHRUTI likely prerenal/Bactrim/ibuprofen
-IV fluids
Anxiety
History of renal stones
Full code
DVT prophylaxis�SCDs
N.p.o
[2024-10-09 15:25] VITALS: BP 85/53
--- NOTE | 2024-10-09 15:26 | EDRN ---
RN bedside to check VS. BP 85/53. Pt states she feels 'woozy'. Admitting MD made aware. NSS 500ml IV Bolus ordered. Pt advised. Will continue to monitor.
[2024-10-09] MEDS: NSS 500 IV (15:29)
[2024-10-09 16:33] VITALS: BP 99/57
--- NOTE | 2024-10-09 17:07 | W.PN.URO.CBU ---
Today's Communication / Plan
-
iv abs
Assessment / Plan
-
probablke complex uti georgina provide targeted icv abs christ if no relief will consider jj stent exchange await ct scan and cxs
Diagnosis
-
Date of Service: October 09, 2024
-
Patient Diagnosis:rt flank pain has jj stent with h/o esbl but bnl wbc and creatinine no fever but pain
Post Op Day:
Subjective
-
rt flank pain
Objective
-
Vital Signs
Temp Pulse Resp BP Pulse Ox
97.7 F 58 15 99/57 97
10/09/24 15:25 10/09/24 16:33 10/09/24 15:25 10/09/24 16:33 10/09/24 15:25
Laboratory Results
10/09/24 10:14
10/09/24 10:14
Review of Systems
-
: Flank Pain
Physical Exam
-
General - well developed, well nourished, no acute distress non toxic
Chest - clear bilaterally
Abdomen - soft, non-tender, positive bowel sounds, no CVAT, no incisional pain or distention
Genitalia - normal
Rectal - normal
Skin - warm & dry with no rash
Neuro - AOx3, no motor deficits
Extremities - no clubbing, no cyanosis, no edema
Incision - clean, dry
Dressing - clean, dry, intact
Care Review
Data Reviewed
Discussed with: Hospitalist and Nursing
[2024-10-09 18:21] VITALS: BP 93/54
[2024-10-09] MEDS: ZOSYN 50 IV ×2 (18:25→23:29)
[2024-10-09] MEDS: DILAUDID 0.5 MG IV (19:05)
[2024-10-09 20:40] VITALS: BP 108/57; BMI 29.6
[2024-10-09 23:00] VITALS: BP 99/53
[2024-10-09] MEDS: MORPHINE SULFATE 2 MG IV (23:28)
[2024-10-10] MEDS: NSS 1000 IV ×2 (03:09→20:22)
[2024-10-10] MEDS: ZOSYN 50 IV ×3 (05:07→18:32)
[2024-10-10] MEDS: DILAUDID 0.5 MG IV (05:07)
[2024-10-10 07:33] VITALS: BP 83/40
[2024-10-10 07:55] LABS: % Basophils 1.4 % (0-2); % Eosinophils 1.9 % (0-6); % Immature Granulocytes 0.3 % (0-0.5); % Lymphocytes 46.5 % (20.5-51.1); % Neutrophils 39.9 % (42.2-75.2); Absolute Basophils 0.1 10^3/uL (0-0.2); Absolute Eosinophils 0.1 10^3/uL (0-0.7); Absolute Lymphocytes 1.7 10^3/uL (1.2-3.4); Absolute Monocytes 0.4 10^3/uL (0.1-0.6); Absolute Neutrophils 1.4 10^3/uL (1.4-6.5); Hematocrit 35.3 % (37.0-47.0); Hemoglobin 11.6 g/dL (12.0-16.0); Mean Corp Hgb Conc. 32.9 g/dL (33.0-37.0); Mean Corpuscular Hgb 29.9 pg (27.0-31.0); Mean Platelet Volume 9.5 fL (7.4-10.4); Nucleated Red Blood Cells % 0 %; Platelet Count 185 10^3/uL (130-400); Red Blood Cell Count 3.88 10^6/uL (4.20-5.40); White Blood Cell Count 3.6 10^3/uL (4.8-10.8)
[2024-10-10 08:16] LABS: ALT (SGPT) 32 U/L (0-35); AST (SGOT) 42 U/L (14-36); Albumin 3.1 g/dl (3.5-5.0); Alkaline Phosphatase 73 U/L (38-126); Blood Urea Nitrogen 15 mg/dl (7-17); Calcium 8.5 mg/dl (8.4-10.2); Carbon Dioxide 24 mmol/L (22-30); Chloride 106 mmol/L (98-107); Estimated Creatinine Clearance 59 ml/min; Glucose 78 mg/dl (70-99); Potassium 4.7 mmol/L (3.5-5.1); Sodium 137 mmol/L (135-145); Total Bilirubin 0.9 mg/dl (0.2-1.3); Total Protein 5.7 g/dl (6.3-8.2); eGFR > 60.00
[2024-10-10] MEDS: COLACE 100 MG PO (09:14)
[2024-10-10] MEDS: FLOMAX 0.4 MG PO (09:14)
--- NOTE | 2024-10-10 09:35 | W.PN.HOSP.TC ---
Today's Communication/Plan
-
EKG
Troponin x 3
Continue IV Zosyn
GB US
Assessment / Plan
Assessment / Plan
# Right hydronephrosis/right hydroureter secondary to possibly infected right ureteral stent
discussed with Dr. Shannon, would tx with abx, but not remove stent currently
# Recent ESBL E. coli UTI (sens to Bactrim - which she was on and Zosyn)
was hospitalized 09/28-10/01/24
-Patient not septic
-CT abdomen pelvis shows moderate right hydronephrosis, right hydroureter due to a right sided stent which is in satisfactory position with proximal loop within the region of the right renal pelvis and distal loop close in the urinary bladder, no
calculi present along the course
-IV fluids
-E. coli sensitive to Zosyn, continue Zosyn
-Zofran, Dilaudid
-Continue tamsulosin
# SHRUTI likely prerenal/Bactrim/ibuprofen
-IV fluids
Better 28/1.2-->15/1.0
Acute epigastric pain. When contacted by nursing, ordered EKG and responded very soon thereafter
EKG is normal
Troponin ordered and is pending
Abdominal US ordered and is pending
Pt has no risk factors for early CAD (Neg fam hx, nonsmoker, nl Chol, no DM) and pain occurred at rest and is really in epigastric area. Doubt cardiac origin, more likely GB related.
Will check above studies, consider cardio eval, but for now await preliminary studies and pt is comfortable with this evaluation
Will allow diet after GBUS
Anxiety
History of renal stones
Full code
DVT prophylaxis�SCDs
Anticipated Discharge: > 48 hours
Subjective/Interval History
-
Date of Service: October 10, 2024
Called to see patient urgently for squeezing chest pain, though on examination pain was really in epigastrium, with tenderness over Bender's point and described as cramping pain
Rt Flank pain somewhat less severe currently
Objective Data
-
Labs:
Laboratory Results
10/10/24
07:03
WBC 3.6 L
Hgb 11.6 L
Hct 35.3 L
Plt Count 185 D
Sodium 137
Potassium 4.7
Chloride 106
Carbon Dioxide 24
BUN 15
Creatinine 1.0
Glucose 78
Calcium 8.5
Total Bilirubin 0.9
AST 42 H
ALT 32
Alkaline Phosphatase 73
Vital Signs:
Vital Signs
Temp Pulse Resp BP Pulse Ox
97.6 F 53 16 83/40 97
10/10/24 07:33 10/10/24 07:33 10/10/24 07:33 10/10/24 07:33 10/10/24 07:33
I&O
10/09/24 10/10/24 10/11/24
06:59 06:59 06:59
Intake Total 2059
Balance 2059
Review of Systems
-
History Source: Patient
Constitutional: Denies Fever
EENT: Reports No Symptoms Reported
Respiratory: Reports No Symptoms; Denies Cough
Cardiac: Reports No Symptoms and Chest Pain
Abdomen/GI: Reports Abdominal Pain (epigastric)
Genitourinary: Reports Flank Pain and Urgency
Musculoskeletal: Reports No Symptoms
Neuro: Reports No Symptoms
Physical Exam
-
General: Well Developed, Well Nourished and No Apparent Distress
HEENT: Normocephalic, Atraumatic and Moist Mucous Membranes
Respiratory: Clear to Auscultation; Negative Wheezes, Rales or Rhonchi
Cardiac: Regular Rhythm and S1/S2
GI: Soft and Tender (epigastric and Bender's point)
Genito-urinary: No Costovertebral Tender
Musculoskeletal: No Clubbing, No Cyanosis and No Edema
Neuro: Awake, Alert and Oriented
[2024-10-10 09:50] LABS: Troponin I < 0.012 ng/ml
--- NOTE | 2024-10-10 12:11 | W.PN.URO.CBU ---
Today's Communication / Plan
-
no gu interventioin
Assessment / Plan
-
pain somewhat better ur cx is negative and no whit count possible just sta-ent pain or non urologic pain will consider dstopping abs in light of neg cx
Diagnosis
-
Date of Service: October 10, 2024
-
Patient Diagnosis:
Post Op Day:
Patient Diagnosis:rt flank pain has jj stent with h/o esbl but bnl wbc and creatinine no fever but pain
Post Op Day:
Subjective
-
improved today
Objective
-
Vital Signs
Temp Pulse Resp BP Pulse Ox
97.6 F 53 16 83/40 97
10/10/24 07:33 10/10/24 07:33 10/10/24 07:33 10/10/24 07:33 10/10/24 07:33
Intake and Output
10/09/24 10/10/24 10/11/24
06:59 06:59 06:59
Intake Total 2059
Balance 2059
Intake:
Oral fluids 960 / 960
IV fluids (Total) 1000 / 1000
IV piggybacks 100 / 100
Other:
Number of approximated MODERATE 2
amounts of urine
Laboratory Results
10/10/24 07:03
10/10/24 07:03
Review of Systems
-
Abdomen/GI: Abdominal Pain
Physical Exam
-
General - well developed, well nourished, no acute distress
Chest - clear bilaterally
Abdomen - soft, non-tender, positive bowel sounds, no CVAT, no incisional pain or distention
Genitalia - normal
Rectal - normal
Skin - warm & dry with no rash
Neuro - AOx3, no motor deficits
Extremities - no clubbing, no cyanosis, no edema
Incision - clean, dry
Dressing - clean, dry, intact
Care Review
Data Reviewed
Discussed with: Hospitalist
CT Scan: Image Pers Reviewed
[2024-10-10] MEDS: ZOFRAN 4 MG IV (12:15)
[2024-10-10 15:39] VITALS: BP 87/50
[2024-10-10 18:30] VITALS: BP 98/57
[2024-10-10] MEDS: ROXICODONE 5 MG PO (20:23)
[2024-10-10] MEDS: SENOKOT 17.2 MG PO (20:23)
[2024-10-10] MEDS: TUMS CHEWABLE TABLET 400 MG PO (20:23)
[2024-10-10 23:30] VITALS: BP 124/56
[2024-10-11] MEDS: ZOSYN 50 IV ×5 (00:25→23:00)
[2024-10-11 06:19] LABS: Hemoglobin 12.5 g/dL (12.0-16.0); Mean Corp Hgb Conc. 32.9 g/dL (33.0-37.0); Mean Corpuscular Hgb 30.4 pg (27.0-31.0); Mean Corpuscular Volume 92.5 fL (81.0-99.0); Mean Platelet Volume 9.3 fL (7.4-10.4); Platelet Count 186 10^3/uL (130-400); Red Blood Cell Count 4.11 10^6/uL (4.20-5.40); Red Cell Dist. Width 12.5 % (11.5-14.5); White Blood Cell Count 3.8 10^3/uL (4.8-10.8)
[2024-10-11 06:31] LABS: ALT (SGPT) 29 U/L (0-35); AST (SGOT) 29 U/L (14-36); Albumin 3.2 g/dl (3.5-5.0); Alkaline Phosphatase 69 U/L (38-126); Blood Urea Nitrogen 14 mg/dl (7-17); Calcium 8.6 mg/dl (8.4-10.2); Carbon Dioxide 27 mmol/L (22-30); Chloride 104 mmol/L (98-107); Estimated Creatinine Clearance 65 ml/min; Glucose 98 mg/dl (70-99); Potassium 4.1 mmol/L (3.5-5.1); Sodium 138 mmol/L (135-145); Total Bilirubin 0.7 mg/dl (0.2-1.3); Total Protein 5.9 g/dl (6.3-8.2); eGFR > 60.00
[2024-10-11 06:34] LABS: Troponin I < 0.012 ng/ml
[2024-10-11 07:00] VITALS: BP 104/55
[2024-10-11] MEDS: FLOMAX 0.4 MG PO (08:08)
[2024-10-11 08:24] LABS: % Basophils 1.3 % (0-2); % Eosinophils 2.4 % (0-6); % Immature Granulocytes 0.3 % (0-0.5); % Lymphocytes 50.3 % (20.5-51.1); % Monocytes 9.2 % (1.7-9.3); % Neutrophils 36.5 % (42.2-75.2); Absolute Basophils 0.1 10^3/uL (0-0.2); Absolute Eosinophils 0.1 10^3/uL (0-0.7); Absolute Lymphocytes 1.9 10^3/uL (1.2-3.4); Absolute Monocytes 0.4 10^3/uL (0.1-0.6); Absolute Neutrophils 1.4 10^3/uL (1.4-6.5); Nucleated Red Blood Cells % 0 %
--- NOTE | 2024-10-11 08:39 | W.PN.HOSP.TC ---
Today's Communication/Plan
-
ID consult
continue IVF, Zosyn
Assessment / Plan
Assessment / Plan
# Right hydronephrosis/right hydroureter secondary to possibly infected right ureteral stent
Obstructing right UVJ stone and UPJ stone cluster w/ hydronephrosis,
underwent cysto and rt stent placement 09/[address] Shannon, would tx with abx, but not remove stent currently
# Recent ESBL sample obtained on 09/28, E. coli UTI (sens to Bactrim - which she was on and Zosyn). Symptoms worsened while on Bactrim and have dramatically improved on Zosyn.
was hospitalized 09/28-10/01/24
-Patient not septic
-CT abdomen pelvis shows: 1).There is moderate right hydronephrosis and right hydroureter due to presence of a right-sided stent which is in satisfactory position with its proximal loop coiled in the region of the right renal pelvis and distal loop
coiled in the urinary bladder.
No calculi are demonstrated along the course of the right ureteral stent
2).There is a 15 mm calculus/cluster of calculi in the lower pole of the right kidney
3). There is a 3 mm nonobstructing calculus in the lower pole of the left kidney
There is a 2.5 cm cyst in the anterior midportion of the left kidney
There is a 1 mm nonobstructing calculus in the upper pole of the left kidney
4). There are small calculi versus polyps in the gallbladder
-IV fluids
-Zofran, Dilaudid
-Continue tamsulosin
will plan on consulting Inf [facility] regarding abx. Input from Dr. Shannon appreciated
# SHRUTI likely prerenal/Bactrim/ibuprofen
-IV fluids
Better 28/1.2-->15/1.0-->14/0.9
Acute epigastric pain. When contacted by nursing, ordered EKG yesterday and repeated today
EKG is normal x2
Troponin ordered neg x2
Abdominal US ordered Neg
Pt has no risk factors for early CAD (Neg fam hx, nonsmoker, nl Chol, no DM) and pain occurred at rest and is really in epigastric area. Doubt cardiac origin, more likely GI related
Would consider cardio eval as outpatient, though currently do not believe epigastric pain is of cardiac origin
tolerating diet
Anxiety
History of renal stones
Full code
DVT prophylaxis�SCDs
Anticipated Discharge: 24 - 48 hours
Subjective/Interval History
-
Date of Service: October 11, 2024
still with epigastric pressure, but less intense. Pt relates that she gets similar symptoms if eats fatty food (such as ice cream).
Objective Data
-
Labs:
Laboratory Results
10/11/24
05:56
WBC 3.8 L
Hgb 12.5
Hct 38.0
Plt Count 186
Sodium 138
Potassium 4.1
Chloride 104
Carbon Dioxide 27
BUN 14
Creatinine 0.9
Glucose 98
Calcium 8.6
Total Bilirubin 0.7
AST 29
ALT 29
Alkaline Phosphatase 69
Vital Signs:
Vital Signs
Temp Pulse Resp BP Pulse Ox
98.0 F 56 18 104/55 98
10/11/24 07:00 10/11/24 07:00 10/11/24 07:00 10/11/24 07:00 10/11/24 07:00
I&O
10/10/24 10/11/24 10/12/24
06:59 06:59 06:59
Intake Total 2059 1700 / 170
Output Total 1949
Balance 2059 -250 / -250
Review of Systems
-
History Source: Patient
Constitutional: Denies Fever
EENT: Reports No Symptoms Reported
Respiratory: Reports No Symptoms; Denies Cough
Cardiac: Reports No Symptoms and Chest Pain
Abdomen/GI: Reports Abdominal Pain (epigastric)
Genitourinary: Reports Dysuria (significant on admission, essentially resolved), Frequency (has decreased), Flank Pain and Urgency
Musculoskeletal: Reports No Symptoms
Neuro: Reports No Symptoms
Physical Exam
-
General: Well Developed, Well Nourished and No Apparent Distress
HEENT: Normocephalic, Atraumatic and Moist Mucous Membranes
Respiratory: Clear to Auscultation; Negative Wheezes, Rales or Rhonchi
Cardiac: Regular Rhythm and S1/S2
GI: Soft and Tender (epigastric and Bender's point)
Genito-urinary: No Costovertebral Tender
Musculoskeletal: No Clubbing, No Cyanosis and No Edema
Neuro: Awake, Alert and Oriented
--- NOTE | 2024-10-11 09:52 | CM ---
Initial assessment and Case Management Consult completed at bedside
Pharmacy verified: [facility] @ [address] [place] [address]
Patient reported she lives in an Apartment with daughter and 3 grandchildren. Independent with ambulation, stairs, and ADLs. Currently out of work
NO DME; NO history of SNF or Home Health utilization
Daughter will transport home
Plan: Discharge to home; Monitor for ABX home infusion needs
--- NOTE | 2024-10-11 12:18 | W.PN.URO.CBU ---
Today's Communication / Plan
-
CONTINUE PRESENT CARE
Assessment / Plan
-
pain somewhat better ur cx is negative and no whit count possible just stENT PAIN CONTINUE ESBL TX HOME EARLY TOMORROW
Diagnosis
-
Date of Service: October 11, 2024
-
Patient Diagnosis:
Post Op Day:
Patient Diagnosis:
Post Op Day:
Patient Diagnosis:rt flank pain has jj stent with h/o esbl but bnl wbc and creatinine no fever but pain
Post Op Day:
Subjective
-
MUCH BETTER
Objective
-
Vital Signs
Temp Pulse Resp BP Pulse Ox
98.0 F 56 18 104/55 98
10/11/24 07:00 10/11/24 07:00 10/11/24 07:00 10/11/24 07:00 10/11/24 07:00
Intake and Output
10/10/24 10/11/24 10/12/24
06:59 06:59 06:59
Intake Total 2059 1700 / 1700
Output Total 1949
Balance 2059 -250 / -250
Intake:
Oral fluids 960 / 960 720 / 720
IV fluids (Total) 1000 / 1000 880 / 880
IV piggybacks 100 / 100 100 / 100
Output:
Urine, Voided 1949
Other:
Number of approximated MODERATE 2
amounts of urine
Laboratory Results
10/11/24 05:56
10/11/24 05:56
Review of Systems
-
: Frequency and Urgency
Physical Exam
-
General - well developed, well nourished, no acute distress
Chest - clear bilaterally
Abdomen - soft, non-tender, positive bowel sounds, no CVAT, no incisional pain or distention
Genitalia - normal
Rectal - normal
Skin - warm & dry with no rash
Neuro - AOx3, no motor deficits
Extremities - no clubbing, no cyanosis, no edema
Incision - clean, dry
Dressing - clean, dry, intact
Care Review
Data Reviewed
Discussed with: Hospitalist and Nursing
[2024-10-11] MEDS: NSS 1000 IV (12:58)
[2024-10-11 15:00] VITALS: BP 87/53
[2024-10-11] MEDS: ZOFRAN 4 MG IV (22:58)
[2024-10-11] MEDS: NSS IV (23:04)
[2024-10-11 23:34] VITALS: BP 87/56
--- NOTE | 2024-10-12 00:30 | PTCARENOTE ---
[place] texted house provider, Rosita Bernard, that pt's blood pressure is 87/56. Pt currently asymptomatic. No new orders for now, will continue to monitor.
[2024-10-12] MEDS: TUMS CHEWABLE TABLET 400 MG PO ×2 (01:20→21:24)
[2024-10-12] MEDS: NSS 1000 IV (03:28)
[2024-10-12] MEDS: ROXICODONE 5 MG PO ×2 (03:34→21:22)
[2024-10-12] MEDS: ZOSYN 50 IV ×2 (05:29→12:22)
[2024-10-12 05:48] LABS: % Basophils 0.7 % (0-2); % Eosinophils 1.2 % (0-6); % Immature Granulocytes 0.3 % (0-0.5); % Lymphocytes 43.9 % (20.5-51.1); % Monocytes 6.3 % (1.7-9.3); % Neutrophils 47.6 % (42.2-75.2); Absolute Eosinophils 0.1 10^3/uL (0-0.7); Absolute Lymphocytes 2.5 10^3/uL (1.2-3.4); Absolute Monocytes 0.4 10^3/uL (0.1-0.6); Absolute Neutrophils 2.7 10^3/uL (1.4-6.5); Hematocrit 36.2 % (37.0-47.0); Hemoglobin 12.4 g/dL (12.0-16.0); Mean Corp Hgb Conc. 34.3 g/dL (33.0-37.0); Mean Corpuscular Hgb 30.5 pg (27.0-31.0); Mean Corpuscular Volume 88.9 fL (81.0-99.0); Mean Platelet Volume 9.4 fL (7.4-10.4); Nucleated Red Blood Cells % 0 %; Platelet Count 199 10^3/uL (130-400); Red Blood Cell Count 4.07 10^6/uL (4.20-5.40); Red Cell Dist. Width 12.3 % (11.5-14.5); White Blood Cell Count 5.7 10^3/uL (4.8-10.8)
[2024-10-12 06:09] LABS: Blood Urea Nitrogen 12 mg/dl (7-17); Carbon Dioxide 24 mmol/L (22-30); Chloride 108 mmol/L (98-107); Estimated Creatinine Clearance 84 ml/min; Glucose 108 mg/dl (70-99); Potassium 4.1 mmol/L (3.5-5.1); Sodium 139 mmol/L (135-145); eGFR > 60.00
[2024-10-12 08:13] VITALS: BP 106/46
--- NOTE | 2024-10-12 08:32 | VATNOTE ---
Left arm medium cubital region with 2cm inflamed area. Patient had been using ice bag for comfort. Warm compress applied, will continue to monitor
--- NOTE | 2024-10-12 09:12 | W.PN.HOSP.TC ---
Today's Communication/Plan
-
Check echo
Assessment / Plan
Assessment / Plan
# Right hydronephrosis/right hydroureter secondary to possibly infected right ureteral stent
Obstructing right UVJ stone and UPJ stone cluster w/ hydronephrosis,
underwent cysto and rt stent placement 09/[address] Shannon, would tx with abx, but not remove stent currently
# Recent ESBL sample obtained on 09/28, E. coli UTI (sens to Bactrim - which she was on and Zosyn). Symptoms worsened while on Bactrim and have dramatically improved on Zosyn.
was hospitalized 09/28-10/01/24
-Patient not septic
-CT abdomen pelvis shows: 1).There is moderate right hydronephrosis and right hydroureter due to presence of a right-sided stent which is in satisfactory position with its proximal loop coiled in the region of the right renal pelvis and distal loop
coiled in the urinary bladder.
No calculi are demonstrated along the course of the right ureteral stent
2).There is a 15 mm calculus/cluster of calculi in the lower pole of the right kidney
3). There is a 3 mm nonobstructing calculus in the lower pole of the left kidney
There is a 2.5 cm cyst in the anterior midportion of the left kidney
There is a 1 mm nonobstructing calculus in the upper pole of the left kidney
4). There are small calculi versus polyps in the gallbladder
-IV fluids
-Zofran, Dilaudid
-Continue tamsulosin
Appreciate ID input, suspect SHRUTI secondary to decreased oral intake and NSAID use, Zosyn transitioned back to Bactrim 10/12
# SHRUTI likely prerenal/Bactrim/ibuprofen
-Resolved status post IV fluid
#Bradycardia
Check echocardiogram
Acute epigastric pain. When contacted by nursing, ordered EKG yesterday and repeated today
EKG is normal x2
Troponin ordered neg x2
Abdominal US ordered Neg
Pt has no risk factors for early CAD (Neg fam hx, nonsmoker, nl Chol, no DM) and pain occurred at rest and is really in epigastric area. Doubt cardiac origin, more likely GI related
Would consider cardio eval as outpatient, though currently do not believe epigastric pain is of cardiac origin
tolerating diet
Anxiety
History of renal stones
DVT prophylaxis�SCDs
Full code
Total time spent to see the patient on the floor, examine the patient, review data and lab results, discuss treatment plan with patient, nursing staff around 50 minutes.
Physical Exam
General: No acute distress
HEENT: Normocephalic, Atraumatic, EOMI, MMM
Respiratory: Clear to Auscultation bilaterally
Cardiac: Normal S1/S2, Regular Rate and Rhythm
GI: Soft, Nontender, Nondistended, Normal Bowel Sounds
Extremities: No Clubbing, Cyanosis, or Edema
Neuro: Nonfocal/Grossly Intact
Psych: Calm, Cooperative
Derm: No Visible lesions
Anticipated Discharge: Within 24 hours
Subjective/Interval History
-
Date of Service: October 12, 2024
Patient reports her right vaginal pain has improved. She does have bradycardia. Reports intermittent lightheadedness and dizziness. No fever, no vomiting.
Objective Data
-
Labs:
Laboratory Results
10/12/24
05:24
WBC 5.7
Hgb 12.4
Hct 36.2 L
Plt Count 199
Sodium 139
Potassium 4.1
Chloride 108 H
Carbon Dioxide 24
BUN 12
Creatinine 0.7
Glucose 108 H
Calcium 9.0
Vital Signs:
Vital Signs
Temp Pulse Resp BP Pulse Ox
97.7 F 48 15 106/46 95
10/12/24 08:13 10/12/24 08:13 10/12/24 08:13 10/12/24 08:13 10/12/24 08:13
I&O
10/11/24 10/12/24 10/13/24
06:59 06:59 06:59
Intake Total 1700 / 1700 2520 / 2520
Output Total 1950 / 1949 800 / 800
Balance -250 / -250 1720 / 1720
[2024-10-12] MEDS: FLOMAX 0.4 MG PO (09:26)
[2024-10-12] MEDS: COLACE PO (09:26)
--- NOTE | 2024-10-12 12:31 | CON.ID ---
Consultation
-
Date/Time Consultation Requested: 10/11/2024 1734
Date/Time Consultation Performed: 10/12/2024 1228
Requesting Provider: Dr. Mann
Performing Provider: Dr. Winston
Reason for Consultation: Complicated urinary tract infection
Chief Complaint / Past History
History of Present Illness
Carie Roth is a 54-year-old female being evaluated at the request of Dr. Mann in regards to a complicated urinary tract infection. History is obtained from chart review, along with patient interview.
In review, the patient has a history of nephrolithiasis requiring interventions x 4 in the past who presented to the ER on September 28 complaining of flank pain. She was recently hospitalized at [facility] with obstructing left ureteral stone
status post laser lithotripsy and stent placement on September 17, 2024. The stent was removed on September 21 since it was partially out. She then developed urinary incontinence, hematuria, right flank pain and burning with urination. She came to
[facility] on September 28. CAT scan showed obstructing right renal calculus. She was taken to the OR the same day status post cystoscopy, right stent placement.
On 10/01, urine cultures suggested a complicated urinary tract infection secondary to ESBL E. coli. She ultimately was discharged home on 10/01, to complete a 14-day course of Bactrim DS twice daily.
She reports that she did well for the first few days after discharge, but over the several days prior to admission she had increasing flank pain with radiation to her right groin. She also admitted to chills, but no fevers. She admits to some
nausea and vomiting. Additionally, she reports decreased oral intake secondary to the nausea.
At admission, the patient was placed on Zosyn. Urine cultures obtained at the time of admission revealed no growth, as do blood cultures. Patient was placed on empiric Zosyn at the time of admission. Infectious Diseases is asked to comment on
further antimicrobial selection.
Past History
Additional Past Medical History:
Nephrolithiasis
Additional Past Surgical History:
Lithotripsies/stents
Appendectomy
Allergy History:
ketorolac [From Toradol] Adverse Reaction (Verified 10/09/24 09:58)
Jittery/Anxiety
tramadol Adverse Reaction (Verified 10/09/24 09:58)
Jittery/Anxiety
Medications Reviewed: Yes
Current Antibiotics:
Zosyn
Social History
Tobacco: Non-Smoker
Alcohol: None
Drug: None
Personal: Other (seperated)
Living: With Family
Family History
Family History: Not Pertinent
Review of Systems
Vital Signs
Temp Pulse Resp BP Pulse Ox
97.7 F 48 15 106/46 95
10/12/24 08:13 10/12/24 08:13 10/12/24 08:13 10/12/24 08:13 10/12/24 08:13
Physical Exam
Physical Exam
Constitutional: No Acute Distress, Comfortable and Non-toxic
Eyes: No Conjunctival Hemorrhage and Sclera Anicteric
Oral: No Thrush and No Ulcers
Cardiovascular: Regular Rate and S1/S2; Negative S3/S4
Pulmonary: Clear
Gastrointestinal: Soft, Non Tender, Non Distended and Normal Bowel Sounds
Genito-Urinary: CVA Tenderness (mild; right side)
Extremities: Negative Edema
Neurological: AO x 3
Psychological: Calm
Lab / Diagnostic Study Results
10/12/24 05:24
10/12/24 05:24
Abs Immat Gran (auto) 0.0 10^3/uL (0-0.05) 10/12/24 05:24
Absolute Neuts (auto) 2.7 10^3/uL (1.4-6.5) 10/12/24 05:24
Absolute Lymphs (auto) 2.5 10^3/uL (1.2-3.4) 10/12/24 05:24
Absolute Monos (auto) 0.4 10^3/uL (0.1-0.6) 10/12/24 05:24
Absolute Basos (auto) 0.0 10^3/uL (0-0.2) 10/12/24 05:24
Immature Gran % 0.3 % (0-0.5) 10/12/24 05:24
Neutrophils % 47.6 % (42.2-75.2) 10/12/24 05:24
Lymphocytes % 43.9 % (20.5-51.1) 10/12/24 05:24
Monocytes % 6.3 % (1.7-9.3) 10/12/24 05:24
Eosinophils % 1.2 % (0-6) 10/12/24 05:24
Basophils % 0.7 % (0-2) 10/12/24 05:24
Ur Squamous Epith Cells 0-2 /LPF (Few) 10/09/24 10:14
Microbiology Results
Micro:
10/09/24 12:26 Blood Culture - Preliminary
Blood/Venous No Growth in 48 hours- Final report to follow
10/09/24 12:26 Blood Culture - Preliminary
Blood/Venous No Growth in 48 hours- Final report to follow
10/09/24 10:14 Urine Culture - Final
Urine NO GROWTH
Imaging:
10/09/2024 CT abdomen/pelvis without contrast: There is moderate right hydronephrosis and right hydroureter due to the presence of a right sided stent which is in satisfactory position with his proximal loop coiled in the region of the right renal
pelvis and distal loop coiled in the urinary bladder. No calculi are demonstrated along the course of the right ureteral stent. There is a 1.5 mm calculus/cluster of calculi in the lower pole of the right kidney. A 3 mm nonobstructing calculus in
the lower pole of the left kidney. Please see full dictation for additional detail.
09/28/24 CT a/p: 0.3 cm calculus at the right ureterovesical junction with mild right hydroureteronephrosis. Additional collection of small stones most likely layering in the right renal pelvis at the approximate level of the right ureteropelvic
junction.
Assessment / Plan
Flank pain
Recent complicated urinary tract infection
Right sided hydronephrosis/right hydroureter with stent in place
Nausea/vomiting; improved
Nephrolithiasis
Recent SHRUTI;
-Doubt involvement of Bactrim. Suspect 2* to decreased p.o. intake and NSAID use
Recommendations:
Blood cultures and urine culture revealed no growth.
Transition back to Bactrim, and observe.
Monitor white count and temperature curve
--- NOTE | 2024-10-12 12:55 | W.PN.URO.CBU ---
Today's Communication / Plan
-
HOME WHEN OK BY HOSPITALIST
Assessment / Plan
-
pain somewhat better ur cx is negative and no whit count possible just stENT PAIN CONTINUE ESBL TX HOME EARLY TOMORROW
Diagnosis
-
Date of Service: October 12, 2024
-
Patient Diagnosis:
Post Op Day:
Patient Diagnosis:
Post Op Day:
Patient Diagnosis:
Post Op Day:
Patient Diagnosis:rt flank pain has jj stent with h/o esbl but bnl wbc and creatinine no fever but pain
Post Op Day:
Subjective
-
IMPROVING EVERY DAY
Objective
-
Vital Signs
Temp Pulse Resp BP Pulse Ox
97.7 F 48 15 106/46 95
10/12/24 08:13 10/12/24 08:13 10/12/24 08:13 10/12/24 08:13 10/12/24 08:13
Intake and Output
10/11/24 10/12/24 10/13/24
06:59 06:59 06:59
Intake Total 1700 / 1700 2520 / 2520
Output Total 1949 800 / 800
Balance -250 / -250 1720 / 1720
Intake:
Oral fluids 720 / 720 1500 / 1500
IV fluids (Total) 880 / 880 920 / 920
IV piggybacks 100 / 100 100 / 100
Output:
Urine, Voided 1949 800 / 800
Other:
Number of approximated MODERATE 2
amounts of urine
Laboratory Results
10/12/24 05:24
10/12/24 05:24
Review of Systems
-
: Urgency
Physical Exam
-
General - well developed, well nourished, no acute distress
Chest - clear bilaterally
Abdomen - soft, non-tender, positive bowel sounds, no CVAT, no incisional pain or distention
Genitalia - normal
Rectal - normal
Skin - warm & dry with no rash
Neuro - AOx3, no motor deficits
Extremities - no clubbing, no cyanosis, no edema
Incision - clean, dry
Dressing - clean, dry, intact
Care Review
Data Reviewed
Discussed with: Nursing
[2024-10-12 15:00] VITALS: BP 97/56
--- NOTE | 2024-10-12 15:58 | CM ---
Reviewed the chart notes and spoke with the patient at the bedside. Patient anticipates being discharged to home on oral abx. CM continues to be available to patient/family and is monitoring medical plan for needs at discharge.
Plan: Discharge to home when medically stable. No anticipated needs identified at this time.
[2024-10-12] MEDS: BACTRIM DS 800 MG/160 MG 1 TABLET PO (21:17)
[2024-10-13] VITALS (7 sets, daily range): BP systolic 86–106; BP diastolic 45–68; PULSE 55–72
[2024-10-13 06:30] LABS: Hematocrit 39.5 % (37.0-47.0); Hemoglobin 13.4 g/dL (12.0-16.0); Mean Corp Hgb Conc. 33.9 g/dL (33.0-37.0); Mean Corpuscular Volume 88.4 fL (81.0-99.0); Mean Platelet Volume 9.7 fL (7.4-10.4); Platelet Count 216 10^3/uL (130-400); Red Blood Cell Count 4.47 10^6/uL (4.20-5.40); Red Cell Dist. Width 12.4 % (11.5-14.5); White Blood Cell Count 5.2 10^3/uL (4.8-10.8)
[2024-10-13 07:06] LABS: Blood Urea Nitrogen 15 mg/dl (7-17); Calcium 9.7 mg/dl (8.4-10.2); Carbon Dioxide 23 mmol/L (22-30); Chloride 105 mmol/L (98-107); Estimated Creatinine Clearance 84 ml/min; Glucose 90 mg/dl (70-99); Potassium 4.3 mmol/L (3.5-5.1); Sodium 139 mmol/L (135-145); eGFR > 60.00
[2024-10-13] MEDS: FLOMAX 0.4 MG PO (07:53)
[2024-10-13] MEDS: BACTRIM DS 800 MG/160 MG 1 TABLET PO ×2 (07:53→19:46)
--- NOTE | 2024-10-13 09:11 | W.PN.HOSP.TC ---
Today's Communication/Plan
-
Cancel discharge
Continue current treatment
Assessment / Plan
Assessment / Plan
# Right hydronephrosis/right hydroureter secondary to possibly infected right ureteral stent
Obstructing right UVJ stone and UPJ stone cluster w/ hydronephrosis,
underwent cysto and rt stent placement 09/[address] Shannon, would tx with abx, but not remove stent currently
# Recent ESBL sample obtained on 09/28, E. coli UTI (sens to Bactrim - which she was on and Zosyn). Symptoms worsened while on Bactrim and have dramatically improved on Zosyn.
was hospitalized 09/28-10/01/24
-Patient not septic
-CT abdomen pelvis shows: 1).There is moderate right hydronephrosis and right hydroureter due to presence of a right-sided stent which is in satisfactory position with its proximal loop coiled in the region of the right renal pelvis and distal loop
coiled in the urinary bladder.
No calculi are demonstrated along the course of the right ureteral stent
2).There is a 15 mm calculus/cluster of calculi in the lower pole of the right kidney
3). There is a 3 mm nonobstructing calculus in the lower pole of the left kidney
There is a 2.5 cm cyst in the anterior midportion of the left kidney
There is a 1 mm nonobstructing calculus in the upper pole of the left kidney
4). There are small calculi versus polyps in the gallbladder
-IV fluids
-Zofran, Dilaudid
-Continue tamsulosin
Appreciate ID input, suspect SHRUTI secondary to decreased oral intake and NSAID use, Zosyn transitioned back to Bactrim 10/12
# SHRUTI likely prerenal/Bactrim/ibuprofen
-Resolved status post IV fluid
# Asymptomatic bradycardia
Echocardiogram unremarkable
Acute epigastric pain. When contacted by nursing, ordered EKG yesterday and repeated today
EKG is normal x2
Troponin ordered neg x2
Abdominal US ordered Neg
Pt has no risk factors for early CAD (Neg fam hx, nonsmoker, nl Chol, no DM) and pain occurred at rest and is really in epigastric area. Doubt cardiac origin, more likely GI related
Would consider cardio eval as outpatient, though currently do not believe epigastric pain is of cardiac origin
tolerating diet
Anxiety
History of renal stones
DVT prophylaxis�SCDs
Full code
Total time spent to see the patient on the floor, examine the patient, review data and lab results, discuss treatment plan with patient, nursing staff around 51 minutes.
Physical Exam
General: No acute distress
HEENT: Normocephalic, Atraumatic, EOMI, MMM
Respiratory: Clear to Auscultation bilaterally
Cardiac: Normal S1/S2, Regular Rate and Rhythm
GI: Soft, Nontender, Nondistended, Normal Bowel Sounds
Extremities: No Clubbing, Cyanosis, or Edema
Neuro: Nonfocal/Grossly Intact
Psych: Calm, Cooperative
Derm: No Visible lesions
Anticipated Discharge: Within 24 hours
Subjective/Interval History
-
Date of Service: October 13, 2024
Patient was planned for discharge, then reports having severe pain in her right vaginal area. No fever, no vomiting.
Objective Data
-
Labs:
Laboratory Results
10/13/24
05:51
WBC 5.2
Hgb 13.4
Hct 39.5
Plt Count 216
Sodium 139
Potassium 4.3
Chloride 105
Carbon Dioxide 23
BUN 15
Creatinine 0.7
Glucose 90
Calcium 9.7
Vital Signs:
Vital Signs
Temp Pulse Resp BP Pulse Ox
97.8 F 54 16 98/55 97
10/13/24 07:05 10/13/24 07:05 10/13/24 07:05 10/13/24 07:05 10/13/24 07:05
I&O
10/12/24 10/13/24 10/14/24
06:59 06:59 06:59
Intake Total 2520 / 2520 720 / 720
Output Total 800 / 800
Balance 1720 / 1720 720 / 720
[2024-10-13] MEDS: ROXICODONE 5 MG PO (10:07)
--- NOTE | 2024-10-13 11:21 | CM ---
Carie is cleared for discharge to home today with no identified needs.
--- NOTE | 2024-10-13 12:50 | W.PN.URO.CBU ---
Today's Communication / Plan
-
OK FOR D/C
Assessment / Plan
-
pain somewhat better ur cx is negative and no whit count possible just stENT PAIN CONTINUE ESBL TX HOME EARLY TODAY
Diagnosis
-
Date of Service: October 13, 2024
-
Patient Diagnosis:
Post Op Day:
Patient Diagnosis:
Post Op Day:
Patient Diagnosis:
Post Op Day:
Patient Diagnosis:
Post Op Day:
Patient Diagnosis:rt flank pain has jj stent with h/o esbl but bnl wbc and creatinine no fever but pain
Post Op Day:
Subjective
-
some flank discomfort no fevr
Objective
-
Vital Signs
Temp Pulse Resp BP Pulse Ox
97.9 F 70 14 86/51 95
10/13/24 12:12 10/13/24 12:12 10/13/24 12:12 10/13/24 12:12 10/13/24 12:12
Intake and Output
10/12/24 10/13/24 10/14/24
06:59 06:59 06:59
Intake Total 2520 / 2520 720 / 720
Output Total 800 / 800
Balance 1720 / 1720 720 / 720
Intake:
Oral fluids 1500 / 1500 720 / 720
IV fluids (Total) 920 / 920
IV piggybacks 100 / 100
Output:
Urine, Voided 800 / 800
Other:
Number of approximated MODERATE 2 1
amounts of urine
Laboratory Results
10/13/24 05:51
10/13/24 05:51
Review of Systems
-
: Flank Pain
Physical Exam
-
General - well developed, well nourished, no acute distress
Chest - clear bilaterally
Abdomen - soft, non-tender, positive bowel sounds, no CVAT, no incisional pain or distention
Genitalia - normal
Rectal - normal
Skin - warm & dry with no rash
Neuro - AOx3, no motor deficits
Extremities - no clubbing, no cyanosis, no edema
Incision - clean, dry
Dressing - clean, dry, intact
[2024-10-13 13:50] LABS: Glucose - Point of Care 100 mg/dl (70-99)
[2024-10-13] MEDS: DILAUDID 0.5 MG IV ×2 (14:04→22:09)
--- NOTE | 2024-10-13 16:55 | VATNOTE ---
Left antecubital fossa phlebitis assessed. Client states that it is improving. 2cm palpable tender cord but no redness or swelling . Advised primary care RN to continue to apply warmth to site q 4h.
--- NOTE | 2024-10-13 17:02 | W.PN.ID1 ---
Date of Service
Date of Service: October 13, 2024
Today's Communication
Continue current course of Bactrim.
Assessment / Plan
Flank pain
Recent complicated urinary tract infection
Right sided hydronephrosis/right hydroureter with stent in place
Nausea/vomiting; ongoing
Nephrolithiasis
Recent SHRUTI; resolved
-Doubt involvement of Bactrim. Suspect 2* to decreased p.o. intake and NSAID use
Recommendations:
Blood cultures and urine culture revealed no growth.
Continue Bactrim and observe.
Monitor white count and temperature curve
Chief Complaint
-: UTI
Subjective / Review of Systems
Patient seen and examined. Denies fever, but has ongoing right flank discomfort with extension into the right groin.
Review of Systems: No Fever
Vital Signs / Physical Exam
Vital Signs
Vital Signs
Temp Pulse Resp BP Pulse Ox
97.6 F 54 16 106/64 98
10/13/24 15:43 10/13/24 15:43 10/13/24 15:43 10/13/24 15:43 10/13/24 15:43
Physical Exam
Constitutional: No Acute Distress, Comfortable and Non-toxic
Cardiovascular: S1/S2; Negative S3/S4
Pulmonary: Clear and Non Labored
Gastrointestinal: Soft, Non Tender and Non Distended
Extremities: Negative Edema or Cyanosis
Neurological: Awake and Alert
Psychological: Calm
Objective Data
Lab Data
Lab Results
10/13/24 05:51
10/13/24 05:51
Estimated Creat Clear 84 ml/min 10/13/24 05:51
Total Bilirubin 0.7 mg/dl (0.2-1.3) 10/11/24 05:56
AST 29 U/L (14-36) 10/11/24 05:56
ALT 29 U/L (0-35) 10/11/24 05:56
Alkaline Phosphatase 69 U/L (38-126) 10/11/24 05:56
Most recent labs reviewed.
Micro Results:
10/09/24 12:26 Blood Culture - Preliminary
Blood/Venous No Growth in 4 days- Final report to follow
10/09/24 12:26 Blood Culture - Preliminary
Blood/Venous No Growth in 4 days- Final report to follow
10/09/24 10:14 Urine Culture - Final
Urine NO GROWTH
Imaging:
10/09/2024 CT abdomen/pelvis without contrast: There is moderate right hydronephrosis and right hydroureter due to the presence of a right sided stent which is in satisfactory position with his proximal loop coiled in the region of the right renal
pelvis and distal loop coiled in the urinary bladder. No calculi are demonstrated along the course of the right ureteral stent. There is a 1.5 mm calculus/cluster of calculi in the lower pole of the right kidney. A 3 mm nonobstructing calculus in
the lower pole of the left kidney. Please see full dictation for additional detail.
09/28/24 CT a/p: 0.3 cm calculus at the right ureterovesical junction with mild right hydroureteronephrosis. Additional collection of small stones most likely layering in the right renal pelvis at the approximate level of the right ureteropelvic
junction.
[2024-10-13] MEDS: TUMS CHEWABLE TABLET 400 MG PO (17:43)
[2024-10-13] MEDS: ZOFRAN 4 MG IV ×2 (17:44→23:45)
[2024-10-14] VITALS (17 sets, daily range): BP systolic 88–120; BP diastolic 50–81
[2024-10-14] MEDS: COLACE 100 MG PO (07:34)
[2024-10-14] MEDS: FLOMAX 0.4 MG PO (07:34)
[2024-10-14] MEDS: BACTRIM DS 800 MG/160 MG 1 TABLET PO ×2 (07:34→20:12)
--- NOTE | 2024-10-14 07:38 | W.SUR.PREOP ---
Pre-Operative Surgical Note
-
I have examined this patient prior to the performance of the scheduled procedure.
The patient's condition is unchanged from the time of the current History and
Physical and the patient is able to undergo the scheduled procedure.
UCx + BCx x2 NG.
Prior UCx => ESBL E. Coli.
On Bactrim DS per ID.
- Maintain NPO
- To OR later today for right URS/LL/stone extraction/stent exchange
- Surgical consent to be signed in preop holding
- IV Ertapenem 1g rayon winder to OR (ordered)
Plan of care confirmed w/ patient.
D/w Hospitalist.
--- NOTE | 2024-10-14 09:10 | VATNOTE ---
Phlebitic area noted to left antecubital area. Cord remains palpable, and patient notes area tender to palpation. No swelling or drainage noted.
--- NOTE | 2024-10-14 09:21 | W.PN.HOSP.TC ---
Today's Communication/Plan
-
For OR w/ Dr. Martínez today
Assessment / Plan
Assessment / Plan
# Right hydronephrosis/right hydroureter secondary to possibly infected right ureteral stent
Obstructing right UVJ stone and UPJ stone cluster w/ hydronephrosis,
S/p cysto and rt stent placement 09/[address] Shannon, would tx with abx, but not remove stent currently
# Recent ESBL sample obtained on 09/28, E. coli UTI (sens to Bactrim - which she was on and Zosyn). Symptoms worsened while on Bactrim and have dramatically improved on Zosyn.
was hospitalized 09/28-10/01/24
-Patient not septic
-CT abdomen pelvis shows: 1).There is moderate right hydronephrosis and right hydroureter due to presence of a right-sided stent which is in satisfactory position with its proximal loop coiled in the region of the right renal pelvis and distal loop
coiled in the urinary bladder.
No calculi are demonstrated along the course of the right ureteral stent
2).There is a 15 mm calculus/cluster of calculi in the lower pole of the right kidney
3). There is a 3 mm nonobstructing calculus in the lower pole of the left kidney
There is a 2.5 cm cyst in the anterior midportion of the left kidney
There is a 1 mm nonobstructing calculus in the upper pole of the left kidney
4). There are small calculi versus polyps in the gallbladder
-IV fluids
-Zofran, Dilaudid
-Continue tamsulosin
Appreciate ID input, suspect SHRUTI secondary to decreased oral intake and NSAID use, Zosyn transitioned back to Bactrim 10/12
Appreciate urology input, for OR with Dr. Martínez today
#Dizziness
Likely due to pain, supportive care
# SHRUTI likely prerenal/Bactrim/ibuprofen
-Resolved status post IV fluid
# Asymptomatic bradycardia
Echocardiogram unremarkable
Acute epigastric pain. When contacted by nursing, ordered EKG yesterday and repeated today
EKG is normal x2
Troponin ordered neg x2
Abdominal US ordered Neg
Pt has no risk factors for early CAD (Neg fam hx, nonsmoker, nl Chol, no DM) and pain occurred at rest and is really in epigastric area. Doubt cardiac origin, more likely GI related
Would consider cardio eval as outpatient, though currently do not believe epigastric pain is of cardiac origin
tolerating diet
Anxiety
History of renal stones
DVT prophylaxis�SCDs
Full code
Total time spent to see the patient on the floor, examine the patient, review data and lab results, discuss treatment plan with patient, nursing staff around 41 minutes.
Physical Exam
General: Appears to be in pain, no acute distress
HEENT: Normocephalic, Atraumatic, EOMI, MMM
Respiratory: Clear to Auscultation bilaterally
Cardiac: Normal S1/S2, Regular Rate and Rhythm
GI: Soft, Nontender, Nondistended, Normal Bowel Sounds
Extremities: No Clubbing, Cyanosis, or Edema
Neuro: Nonfocal/Grossly Intact
Psych: Calm, Cooperative
Derm: No Visible lesions
Anticipated Discharge: Within 24 hours
Subjective/Interval History
-
Date of Service: October 14, 2024
C/o severe R flank and R vaginal pain. She is crying from the pain. No fever.
Objective Data
-
Vital Signs:
Vital Signs
Temp Pulse Resp BP Pulse Ox
97.9 F 60 16 91/52 99
10/14/24 08:09 10/14/24 08:09 10/14/24 08:09 10/14/24 08:09 10/14/24 08:09
I&O
10/13/24 10/14/24 10/15/24
06:59 06:59 06:59
Intake Total 720 / 720 660 / 660
Balance 720 / 720 660 / 660
[2024-10-14] MEDS: DILAUDID 0.5 MG IV (10:40)
[2024-10-14] MEDS: ZOFRAN 4 MG IV ×2 (10:41→18:44)
--- NOTE | 2024-10-14 13:17 | W.PN.ID1 ---
Date of Service
Date of Service: October 14, 2024
Today's Communication
Continue antibiotics. Await OR.
Assessment / Plan
Flank pain
Recent complicated urinary tract infection
Right sided hydronephrosis/right hydroureter with stent in place
Nausea/vomiting; ongoing
Nephrolithiasis
Recent SHRUTI; resolved
-Doubt involvement of Bactrim. Suspect 2* to decreased p.o. intake and NSAID use
Recommendations:
Blood cultures and urine culture revealed no growth.
Continue Bactrim.
Patient for tentative OR later today for stent exchange and stone removal. Single dose of ertapenem ordered preop.
Monitor white count and temperature curve.
����������������������������������������������������������
Chief Complaint
-: UTI and Other (Flank pain)
Subjective / Review of Systems
Patient seen and examined. Reports ongoing right flank pain with extension into the right groin. Reviewed notes indicate potential/tentative OR later today for stent exchange and stone removal
Vital Signs / Physical Exam
Vital Signs
Vital Signs
Temp Pulse Resp BP Pulse Ox
97.9 F 60 16 91/52 99
10/14/24 08:09 10/14/24 08:09 10/14/24 08:09 10/14/24 08:09 10/14/24 08:09
Physical Exam
Constitutional: No Acute Distress, Comfortable and Non-toxic
Eyes: No Conjunctival Hemorrhage and Sclera Anicteric
Cardiovascular: S1/S2; Negative S3/S4
Pulmonary: Clear and Non Labored
Gastrointestinal: Soft, Non Tender and Non Distended
Extremities: Negative Edema or Cyanosis
Neurological: Awake and Alert
Psychological: Calm
Objective Data
Lab Data
Lab Results
10/13/24 05:51
10/13/24 05:51
Estimated Creat Clear 84 ml/min 10/13/24 05:51
Total Bilirubin 0.7 mg/dl (0.2-1.3) 10/11/24 05:56
AST 29 U/L (14-36) 10/11/24 05:56
ALT 29 U/L (0-35) 10/11/24 05:56
Alkaline Phosphatase 69 U/L (38-126) 10/11/24 05:56
Most recent labs reviewed.
Micro Results:
10/09/24 12:26 Blood Culture - Final
Blood/Venous No Growth - Final Report
10/09/24 12:26 Blood Culture - Final
Blood/Venous No Growth - Final Report
10/09/24 10:14 Urine Culture - Final
Urine NO GROWTH
Imaging:
10/09/2024 CT abdomen/pelvis without contrast: There is moderate right hydronephrosis and right hydroureter due to the presence of a right sided stent which is in satisfactory position with his proximal loop coiled in the region of the right renal
pelvis and distal loop coiled in the urinary bladder. No calculi are demonstrated along the course of the right ureteral stent. There is a 1.5 mm calculus/cluster of calculi in the lower pole of the right kidney. A 3 mm nonobstructing calculus in
the lower pole of the left kidney. Please see full dictation for additional detail.
09/28/24 CT a/p: 0.3 cm calculus at the right ureterovesical junction with mild right hydroureteronephrosis. Additional collection of small stones most likely layering in the right renal pelvis at the approximate level of the right ureteropelvic
junction.
--- NOTE | 2024-10-14 15:14 | CM ---
Patient seen at bedside.
Awaiting OR today
CM will continue to follow
PLAN: home, no needs anticipated
--- NOTE | 2024-10-14 16:55 | W.IMMPOSTOP ---
Surgical Immed Post Op Note
-
Primary Surgeon: Mauricio
Pre-op Diagnosis: ESBL cUTI + obstructing right UPJ stone s/p stent placement
Post-op Diagnosis: Same
Procedure Performed: cystoscopy, right URS/LL/stone extraction/stent exchange
Anesthesia Type: LMA
Specimen / Cultures: Stones for analysis/None
Estimated Blood Loss: Negligible
Drains: 6Fr x 22 cm JJ right ureteral stent
Complications: None
Operative Findings: 15 mm collection of stones in RLP fragmented @dusting settings to stone dust and 1-2 mm fragments.
Final KUB and cystoscopy confirming appropriate stent position.
Prior stent notably w/ encrustations w/n lumen suspicious for obstruction from infection matrix.
[2024-10-14] MEDS: SUBLIMAZE 50 MCG IV ×2 (17:20→17:38)
[2024-10-14] MEDS: DETROL LA 4 MG PO (18:08)
[2024-10-14] MEDS: Pyridium 200 MG PO (18:08)
[2024-10-14] MEDS: DITROPAN 5 MG PO (18:11)
[2024-10-14] MEDS: TORADOL 15 MG IV (19:09)
[2024-10-15 02:30] VITALS: BP 106/67
[2024-10-15] MEDS: DILAUDID 0.5 MG IV ×2 (05:34→10:53)
[2024-10-15] MEDS: SENOKOT 17.2 MG PO (05:40)
[2024-10-15 06:34] LABS: Hematocrit 38.6 % (37.0-47.0); Hemoglobin 13.3 g/dL (12.0-16.0); Mean Corp Hgb Conc. 34.5 g/dL (33.0-37.0); Mean Corpuscular Hgb 30.6 pg (27.0-31.0); Mean Corpuscular Volume 88.7 fL (81.0-99.0); Mean Platelet Volume 9.9 fL (7.4-10.4); Platelet Count 232 10^3/uL (130-400); Red Blood Cell Count 4.35 10^6/uL (4.20-5.40); White Blood Cell Count 9.5 10^3/uL (4.8-10.8)
[2024-10-15 06:55] LABS: Blood Urea Nitrogen 16 mg/dl (7-17); Calcium 9.2 mg/dl (8.4-10.2); Carbon Dioxide 22 mmol/L (22-30); Chloride 105 mmol/L (98-107); Estimated Creatinine Clearance 84 ml/min; Glucose 123 mg/dl (70-99); Potassium 4.4 mmol/L (3.5-5.1); Sodium 138 mmol/L (135-145); eGFR > 60.00
[2024-10-15] MEDS: BACTRIM DS 800 MG/160 MG 1 TABLET PO ×2 (07:16→21:09)
[2024-10-15] MEDS: FLOMAX 0.4 MG PO (07:16)
--- NOTE | 2024-10-15 07:28 | W.PN.UPDATE ---
Update Note
Progress Note Update
10/15/23: s/p right ureteroscopy, laser lithotripsy, stone extraction, stent exchange.
Prior ureteral stent demonstrated encrustation (likely from ESBL cUTI at prior admission) w/ obstruction of lumen - explaining moderate hydronephrosis on CT imaging.
New 6Fr (wider caliber) x 22 cm JJ right ureteral stent placed.
Plan:
- Continue Bactrim DS per ID for recent ESBL cUTI
- Advise oxybutynin 5 mg BID prn bladder spasms + pyridium 200 mg BID prn dysuria
- Plan for outpatient stent removal w/ Dr. Martínez within 7-10 days
[2024-10-15 08:03] VITALS: BP 105/66
--- NOTE | 2024-10-15 08:36 | W.PN.HOSP.TC ---
Today's Communication/Plan
-
see bold
Assessment / Plan
Assessment / Plan
# Right hydronephrosis/right hydroureter secondary to possibly infected right ureteral stent
Obstructing right UVJ stone and UPJ stone cluster w/ hydronephrosis,
S/p cysto and rt stent placement 09/[address] Shannon, would tx with abx, but not remove stent currently
# Recent ESBL sample obtained on 09/28, E. coli UTI (sens to Bactrim - which she was on and Zosyn). Symptoms worsened while on Bactrim and have dramatically improved on Zosyn.
was hospitalized 09/28-10/01/24
-Patient not septic
-CT abdomen pelvis shows: 1).There is moderate right hydronephrosis and right hydroureter due to presence of a right-sided stent which is in satisfactory position with its proximal loop coiled in the region of the right renal pelvis and distal loop
coiled in the urinary bladder.
No calculi are demonstrated along the course of the right ureteral stent
2).There is a 15 mm calculus/cluster of calculi in the lower pole of the right kidney
3). There is a 3 mm nonobstructing calculus in the lower pole of the left kidney
There is a 2.5 cm cyst in the anterior midportion of the left kidney
There is a 1 mm nonobstructing calculus in the upper pole of the left kidney
4). There are small calculi versus polyps in the gallbladder
Appreciate ID input, suspect SHRUTI secondary to decreased oral intake and NSAID use, Zosyn transitioned back to Bactrim 10/12
Appreciate urology input, s/p cystoscopy, right URS/LL/stone extraction/stent exchange with Dr. Martínez 10/14
Patient continues to have a lot of pain, continue oxy 5 mg for moderate pain, 10 mg for severe pain, IV Dilaudid for breakthrough pain
#Dizziness
Likely due to pain, supportive care
# SHRUTI likely prerenal/Bactrim/ibuprofen
-Resolved status post IV fluid
# Asymptomatic bradycardia
Echocardiogram unremarkable
Acute epigastric pain. When contacted by nursing, ordered EKG x 2
EKG is normal x2
Troponin ordered neg x2
Abdominal US ordered Neg
Pt has no risk factors for early CAD (Neg fam hx, nonsmoker, nl Chol, no DM) and pain occurred at rest and is really in epigastric area. Doubt cardiac origin, more likely GI related
Would consider cardio eval as outpatient, though currently do not believe epigastric pain is of cardiac origin
Tolerating diet
Anxiety
History of renal stones
DVT prophylaxis�SCDs
Full code
Total time spent to see the patient on the floor, examine the patient, review data and lab results, discuss treatment plan with patient, nursing staff around 39 minutes.
Physical Exam
General: Appears to be in pain, no acute distress
HEENT: Normocephalic, Atraumatic, EOMI, MMM
Respiratory: Clear to Auscultation bilaterally
Cardiac: Normal S1/S2, Regular Rate and Rhythm
GI: Soft, Nontender, Nondistended, Normal Bowel Sounds
Extremities: No Clubbing, Cyanosis, or Edema
Neuro: Nonfocal/Grossly Intact
Psych: Calm, Cooperative
Derm: No Visible lesions
Anticipated Discharge: Within 24 hours
Subjective/Interval History
-
Date of Service: October 15, 2024
Patient continues to complain of severe pain on her right vaginal area, and right flank. Associated symptoms include nausea and dizziness. No fever, no vomiting.
Objective Data
-
Labs:
Laboratory Results
10/15/24
05:20
WBC 9.5
Hgb 13.3
Hct 38.6
Plt Count 232
Sodium 138
Potassium 4.4
Chloride 105
Carbon Dioxide 22
BUN 16
Creatinine 0.7
Glucose 123 H
Calcium 9.2
Vital Signs:
Vital Signs
Temp Pulse Resp BP Pulse Ox
97.7 F 66 16 105/66 97
10/15/24 08:03 10/15/24 08:03 10/15/24 08:03 10/15/24 08:03 10/15/24 08:03
I&O
10/14/24 10/15/24 10/16/24
06:59 06:59 06:59
Intake Total 660 / 660 980 / 980
Output Total 800 / 800
Balance 660 / 660 180 / 180
[2024-10-15] MEDS: ROXICODONE 10 MG PO (08:49)
--- NOTE | 2024-10-15 10:50 | CM ---
Patient seen at bedside.
10/15/23: s/p right ureteroscopy, laser lithotripsy, stone extraction, stent exchange.
Pain management
PLAN: Discharge when stable, home, no needs anticipated
[2024-10-15] MEDS: DITROPAN 5 MG PO (10:53)
--- NOTE | 2024-10-15 13:51 | W.PN.URO.CBU ---
Today's Communication / Plan
-
OK from urologic perspective for d/c home
Complete Bactrim DS course per ID
Recommend NSAIDs (ibuprofen vs. ketorolac) and oxybutynin 5 mg BID prn bladder spasms
Plan for outpatient stent removal in 7-10 days w/ Dr. Martínez
D/w Hospitalist.
Assessment / Plan
-
Persistent right renal and pelvic colic (despite newly exchanged and well-positioned stent 10/14)
H/o ESBL cUTI + obstructing right ureteral stone
10/14: s/p right ureteroscopy/laser lithotripsy/stone extraction/stent exchange
WBC WNL
Cr WNL
10/09: UCx NG
10/09: BCx x2 NG
Despite uncomplicated ULS procedure 10/14 w/ exchange of ureteral stent to wider-caliber (6Fr) confirmed in excellent position on KUB and cystoscopy, patient notes ongoing dizziness, nausea, right abdominal/pelvic pain.
Suspect poor stent tolerance and ongoing bladder spasms.
Diagnosis
-
Date of Service: October 15, 2024
-
Patient Diagnosis:
Severe right renal and pelvic colic (despite newly exchanged and well-positioned stent 10/14)
H/o ESBL cUTI + obstructing right ureteral stone
10/14: s/p right ureteroscopy/laser lithotripsy/stone extraction/stent exchange
Subjective
-
Continues to have nausea and dizziness.
Voiding w/o issues.
Objective
-
Vital Signs
Temp Pulse Resp BP Pulse Ox
97.7 F 66 16 105/66 97
10/15/24 08:03 10/15/24 08:03 10/15/24 08:03 10/15/24 08:03 10/15/24 08:03
Intake and Output
10/14/24 10/15/24 10/16/24
06:59 06:59 06:59
Intake Total 660 / 660 980 / 980
Output Total 800 / 800
Balance 660 / 660 180 / 180
Intake:
Oral fluids 660 / 660 480 / 480
IV fluids (Total) 500 / 500
Normosal 500 / 500
Output:
Urine, Voided 800 / 800
Other:
Number of approximated MODERATE 1 2
amounts of urine
Laboratory Results
10/15/24 05:20
10/15/24 05:20
Physical Exam
-
General - well developed, well nourished, no acute distress
Chest - clear bilaterally
Abdomen - soft, non-tender, no CVAT
Skin - warm & dry with no rash
Extremities - no clubbing, no cyanosis, no edema
Care Review
Data Reviewed
Discussed with: Hospitalist
CT Scan: Report Pers Reviewed and Image Pers Reviewed
--- NOTE | 2024-10-15 15:15 | W.PN.ID1 ---
Date of Service
Date of Service: October 15, 2024
Today's Communication
Continue antibiotics.
Assessment / Plan
Flank pain
Recent complicated urinary tract infection
Right sided hydronephrosis/right hydroureter with stent in place
Nausea/vomiting; ongoing
Nephrolithiasis
Recent SHRUTI; resolved
-Doubt involvement of Bactrim. Suspect 2* to decreased p.o. intake and NSAID use
Recommendations:
S/p right ureteroscopy/laser lithotripsy/stone extraction/stent exchange
Blood cultures and urine culture revealed no growth.
Given recent urologic tract manipulation, continue Bactrim for another 3-5 days.
����������������������������������������������������������
Chief Complaint
-: UTI and Other (Flank pain)
Subjective / Review of Systems
Patient seen and examined. Underwent stent exchange and stone extraction yesterday. Continues to have groin discomfort.
Vital Signs / Physical Exam
Vital Signs
Vital Signs
Temp Pulse Resp BP Pulse Ox
97.7 F 66 16 105/66 97
10/15/24 08:03 10/15/24 08:03 10/15/24 08:03 10/15/24 08:03 10/15/24 08:03
Physical Exam
Constitutional: No Acute Distress, Comfortable and Non-toxic
Eyes: No Conjunctival Hemorrhage and Sclera Anicteric
Pulmonary: Clear and Non Labored
Gastrointestinal: Soft, Non Tender and Non Distended
Extremities: Negative Edema or Cyanosis
Neurological: Awake and Alert
Psychological: Calm
Objective Data
Lab Data
Lab Results
10/15/24 05:20
10/15/24 05:20
Estimated Creat Clear 84 ml/min 10/15/24 05:20
Total Bilirubin 0.7 mg/dl (0.2-1.3) 10/11/24 05:56
AST 29 U/L (14-36) 10/11/24 05:56
ALT 29 U/L (0-35) 10/11/24 05:56
Alkaline Phosphatase 69 U/L (38-126) 10/11/24 05:56
Most recent labs reviewed.
Micro Results:
10/09/24 12:26 Blood Culture - Final
Blood/Venous No Growth - Final Report
10/09/24 12:26 Blood Culture - Final
Blood/Venous No Growth - Final Report
10/09/24 10:14 Urine Culture - Final
Urine NO GROWTH
Imaging:
10/09/2024 CT abdomen/pelvis without contrast: There is moderate right hydronephrosis and right hydroureter due to the presence of a right sided stent which is in satisfactory position with his proximal loop coiled in the region of the right renal
pelvis and distal loop coiled in the urinary bladder. No calculi are demonstrated along the course of the right ureteral stent. There is a 1.5 mm calculus/cluster of calculi in the lower pole of the right kidney. A 3 mm nonobstructing calculus in
the lower pole of the left kidney. Please see full dictation for additional detail.
09/28/24 CT a/p: 0.3 cm calculus at the right ureterovesical junction with mild right hydroureteronephrosis. Additional collection of small stones most likely layering in the right renal pelvis at the approximate level of the right ureteropelvic
junction.
[2024-10-15 15:45] VITALS: BP 94/56
[2024-10-15 23:00] VITALS: BP 101/50
[2024-10-16] MEDS: TORADOL 30 MG IV (01:29)
[2024-10-16 07:03] LABS: Blood Urea Nitrogen 22 mg/dl (7-17); Calcium 9.3 mg/dl (8.4-10.2); Carbon Dioxide 19 mmol/L (22-30); Chloride 108 mmol/L (98-107); Estimated Creatinine Clearance 65 ml/min; Glucose 87 mg/dl (70-99); Potassium 4.5 mmol/L (3.5-5.1); Sodium 137 mmol/L (135-145); eGFR > 60.00
[2024-10-16] MEDS: BACTRIM DS 800 MG/160 MG 1 TABLET PO ×2 (08:09→20:32)
[2024-10-16] MEDS: FLOMAX 0.4 MG PO (08:09)
[2024-10-16] MEDS: COLACE 100 MG PO (08:09)
[2024-10-16 08:17] VITALS: BP 92/53
--- NOTE | 2024-10-16 09:00 | W.PN.HOSP.TC ---
Today's Communication/Plan
-
see bold
Assessment / Plan
Assessment / Plan
# Right hydronephrosis/right hydroureter secondary to possibly infected right ureteral stent
Obstructing right UVJ stone and UPJ stone cluster w/ hydronephrosis,
S/p cysto and rt stent placement 09/[address] Shannon, would tx with abx, but not remove stent currently
# Recent ESBL sample obtained on 09/28, E. coli UTI (sens to Bactrim - which she was on and Zosyn). Symptoms worsened while on Bactrim and have dramatically improved on Zosyn.
was hospitalized 09/28-10/01/24
-Patient not septic
-CT abdomen pelvis shows: 1).There is moderate right hydronephrosis and right hydroureter due to presence of a right-sided stent which is in satisfactory position with its proximal loop coiled in the region of the right renal pelvis and distal loop
coiled in the urinary bladder.
No calculi are demonstrated along the course of the right ureteral stent
2).There is a 15 mm calculus/cluster of calculi in the lower pole of the right kidney
3). There is a 3 mm nonobstructing calculus in the lower pole of the left kidney
There is a 2.5 cm cyst in the anterior midportion of the left kidney
There is a 1 mm nonobstructing calculus in the upper pole of the left kidney
4). There are small calculi versus polyps in the gallbladder
Appreciate ID input, suspect SHRUTI secondary to decreased oral intake and NSAID use, Zosyn transitioned back to Bactrim 10/12
Appreciate urology input, s/p cystoscopy, right URS/LL/stone extraction/stent exchange with Dr. Martínez 10/14
Patient continues to have a lot of pain, give oxybutynin 5 mg twice a day and naproxen 500 mg twice a day
Hopeful for discharge tomorrow with improvement in pain
#Dizziness
Likely due to pain, supportive care
# SHRUTI likely prerenal/Bactrim/ibuprofen
-Resolved status post IV fluid
# Asymptomatic bradycardia
Echocardiogram unremarkable
Acute epigastric pain. When contacted by nursing, ordered EKG x 2
EKG is normal x2
Troponin ordered neg x2
Abdominal US ordered Neg
Pt has no risk factors for early CAD (Neg fam hx, nonsmoker, nl Chol, no DM) and pain occurred at rest and is really in epigastric area. Doubt cardiac origin, more likely GI related
Would consider cardio eval as outpatient, though currently do not believe epigastric pain is of cardiac origin
Tolerating diet
Anxiety
History of renal stones
DVT prophylaxis�SCDs
Full code
Total time spent to see the patient on the floor, examine the patient, review data and lab results, discuss treatment plan with patient, nursing staff around 42 minutes.
Physical Exam
General: Appears to be in pain, no acute distress
HEENT: Normocephalic, Atraumatic, EOMI, MMM
Respiratory: Clear to Auscultation bilaterally
Cardiac: Normal S1/S2, Regular Rate and Rhythm
GI: Soft, Nontender, Nondistended, Normal Bowel Sounds
Extremities: No Clubbing, Cyanosis, or Edema
Neuro: Nonfocal/Grossly Intact
Psych: Calm, Cooperative
Derm: No Visible lesions
Anticipated Discharge: Within 24 hours
Subjective/Interval History
-
Date of Service: October 16, 2024
Patient complains of continued pain on her right flank and right vaginal area. When the sharp pains come, she has dizziness and nausea with it. No fever, no vomiting.
Objective Data
-
Labs:
Laboratory Results
10/16/24
05:47
Sodium 137
Potassium 4.5
Chloride 108 H
Carbon Dioxide 19 L
BUN 22 H
Creatinine 0.9
Glucose 87
Calcium 9.3
Vital Signs:
Vital Signs
Temp Pulse Resp BP Pulse Ox
98.4 F 57 16 92/53 96
10/16/24 08:17 10/16/24 08:17 10/16/24 08:17 10/16/24 08:17 10/16/24 08:17
I&O
10/15/24 10/16/24 10/17/24
06:59 06:59 06:59
Intake Total 980 / 980 1919
Output Total 800 / 800
Balance 180 / 180 1919
[2024-10-16] MEDS: NSS 500 IV (09:51)
[2024-10-16] MEDS: SODIUM BICARBONATE 1300 MG PO ×3 (09:51→22:08)
[2024-10-16] MEDS: DITROPAN 5 MG PO ×2 (10:45→20:32)
[2024-10-16] MEDS: NAPROSYN 500 MG PO ×2 (11:25→20:32)
--- NOTE | 2024-10-16 12:23 | VATNOTE ---
Left antecubital phlebitic area resolved. Client denies any further tenderness or discomfort. No redness noted. Slight 1cm firmness remains in antecubital fossa but no tenderness when palpated.
--- NOTE | 2024-10-16 14:59 | W.PN.ID1 ---
Date of Service
Date of Service: October 16, 2024
Today's Communication
Continue antibiotics.
Assessment / Plan
Flank pain
Recent complicated urinary tract infection
Right sided hydronephrosis/right hydroureter with stent in place
Nausea/vomiting; ongoing
Nephrolithiasis
Recent SHRUTI; resolved
-Doubt involvement of Bactrim. Suspect 2* to decreased p.o. intake and NSAID use
Recommendations:
S/p right ureteroscopy/laser lithotripsy/stone extraction/stent exchange
Blood cultures and urine culture revealed no growth.
Given recent urologic tract manipulation, continue Bactrim for another 3 days.
����������������������������������������������������������
Chief Complaint
-: UTI and Other (Flank pain)
Subjective / Review of Systems
30 Patient seen and examined. Reports improvement in pelvic discomfort and spasms.
Review of Systems: No Fever, No Chills and No Dysuria
Vital Signs / Physical Exam
Vital Signs
Vital Signs
Temp Pulse Resp BP Pulse Ox
98.4 F 57 16 92/53 96
10/16/24 08:17 10/16/24 08:17 10/16/24 08:17 10/16/24 08:17 10/16/24 08:17
Physical Exam
Constitutional: No Acute Distress, Comfortable and Non-toxic
Eyes: No Conjunctival Hemorrhage and Sclera Anicteric
Cardiovascular: S1/S2; Negative S3/S4
Pulmonary: Clear and Non Labored
Gastrointestinal: Soft, Non Tender and Non Distended
Extremities: Negative Edema or Cyanosis
Neurological: Awake, Alert and Oriented
Psychological: Calm
Objective Data
Lab Data
Lab Results
10/15/24 05:20
10/16/24 05:47
Estimated Creat Clear 65 ml/min 10/16/24 05:47
Total Bilirubin 0.7 mg/dl (0.2-1.3) 10/11/24 05:56
AST 29 U/L (14-36) 10/11/24 05:56
ALT 29 U/L (0-35) 10/11/24 05:56
Alkaline Phosphatase 69 U/L (38-126) 10/11/24 05:56
Most recent labs reviewed.
Micro Results:
10/09/24 12:26 Blood Culture - Final
Blood/Venous No Growth - Final Report
10/09/24 12:26 Blood Culture - Final
Blood/Venous No Growth - Final Report
10/09/24 10:14 Urine Culture - Final
Urine NO GROWTH
Imaging:
10/09/2024 CT abdomen/pelvis without contrast: There is moderate right hydronephrosis and right hydroureter due to the presence of a right sided stent which is in satisfactory position with his proximal loop coiled in the region of the right renal
pelvis and distal loop coiled in the urinary bladder. No calculi are demonstrated along the course of the right ureteral stent. There is a 1.5 mm calculus/cluster of calculi in the lower pole of the right kidney. A 3 mm nonobstructing calculus in
the lower pole of the left kidney. Please see full dictation for additional detail.
09/28/24 CT a/p: 0.3 cm calculus at the right ureterovesical junction with mild right hydroureteronephrosis. Additional collection of small stones most likely layering in the right renal pelvis at the approximate level of the right ureteropelvic
junction.
[2024-10-16] MEDS: NSS 1000 IV (15:15)
[2024-10-16 15:24] VITALS: BP 99/52
[2024-10-16 23:57] VITALS: BP 85/52
[2024-10-17] MEDS: NSS 1000 IV ×2 (01:15→08:49)
[2024-10-17 03:59] VITALS: BP 92/57
--- NOTE | 2024-10-17 08:03 | W.PN.HOSP.TC ---
Today's Communication/Plan
-
Stable for discharge today
Assessment / Plan
Assessment / Plan
# Right hydronephrosis/right hydroureter secondary to possibly infected right ureteral stent
Obstructing right UVJ stone and UPJ stone cluster w/ hydronephrosis,
S/p cysto and rt stent placement 09/[address] Shannon, would tx with abx, but not remove stent currently
# Recent ESBL sample obtained on 09/28, E. coli UTI (sens to Bactrim - which she was on and Zosyn). Symptoms worsened while on Bactrim and have dramatically improved on Zosyn.
was hospitalized 09/28-10/01/24
-Patient not septic
-CT abdomen pelvis shows: 1).There is moderate right hydronephrosis and right hydroureter due to presence of a right-sided stent which is in satisfactory position with its proximal loop coiled in the region of the right renal pelvis and distal loop
coiled in the urinary bladder.
No calculi are demonstrated along the course of the right ureteral stent
2).There is a 15 mm calculus/cluster of calculi in the lower pole of the right kidney
3). There is a 3 mm nonobstructing calculus in the lower pole of the left kidney
There is a 2.5 cm cyst in the anterior midportion of the left kidney
There is a 1 mm nonobstructing calculus in the upper pole of the left kidney
4). There are small calculi versus polyps in the gallbladder
Appreciate ID input, suspect SHRUTI secondary to decreased oral intake and NSAID use, Zosyn transitioned back to Bactrim 10/12
Appreciate urology input, s/p cystoscopy, right URS/LL/stone extraction/stent exchange with Dr. Martínez 10/14
Pain improved with oxybutynin 5 mg twice a day and naproxen 500 mg twice a day sched
Medically stable for discharge, follow-up with urology in the office in 1-2 weeks for definitive stone management
#Dizziness
Likely due to pain, supportive care
# SHRUTI likely prerenal/Bactrim/ibuprofen
-Resolved status post IV fluid
# Asymptomatic bradycardia
Echocardiogram unremarkable
Acute epigastric pain. When contacted by nursing, ordered EKG x 2
EKG is normal x2
Troponin ordered neg x2
Abdominal US ordered Neg
Pt has no risk factors for early CAD (Neg fam hx, nonsmoker, nl Chol, no DM) and pain occurred at rest and is really in epigastric area. Doubt cardiac origin, more likely GI related
Would consider cardio eval as outpatient, though currently do not believe epigastric pain is of cardiac origin
Tolerating diet
Anxiety
History of renal stones
DVT prophylaxis�SCDs
Full code
Physical Exam
General: No acute distress
HEENT: Normocephalic, Atraumatic, EOMI, MMM
Respiratory: Clear to Auscultation bilaterally
Cardiac: Normal S1/S2, Regular Rate and Rhythm
GI: Soft, Nontender, Nondistended, Normal Bowel Sounds
Extremities: No Clubbing, Cyanosis, or Edema
Neuro: Nonfocal/Grossly Intact
Psych: Calm, Cooperative
Derm: No Visible lesions
Anticipated Discharge: Today
Subjective/Interval History
-
Date of Service: October 17, 2024
Patient reports feeling better. Her pain is improved, currently 4 out of 10 in intensity. No fever, no vomiting.
Objective Data
-
Labs:
Laboratory Results
10/17/24
07:52
Sodium Pending
Potassium Pending
Chloride Pending
Carbon Dioxide Pending
BUN Pending
Creatinine Pending
Glucose Pending
Calcium Pending
Vital Signs:
Vital Signs
Temp Pulse Resp BP Pulse Ox
99.2 F 58 16 92/57 96
10/16/24 23:57 10/17/24 03:59 10/16/24 23:57 10/17/24 03:59 10/16/24 23:57
I&O
10/16/24 10/17/24 10/18/24
06:59 06:59 06:59
Intake Total 1919 3360 / 3360
Balance 1919 3360 / 3360
[2024-10-17 08:26] VITALS: BP 99/53
[2024-10-17 08:41] LABS: Blood Urea Nitrogen 17 mg/dl (7-17); Calcium 8.5 mg/dl (8.4-10.2); Carbon Dioxide 28 mmol/L (22-30); Chloride 106 mmol/L (98-107); Estimated Creatinine Clearance 65 ml/min; Glucose 86 mg/dl (70-99); Potassium 4.7 mmol/L (3.5-5.1); Sodium 140 mmol/L (135-145); eGFR > 60.00
[2024-10-17] MEDS: BACTRIM DS 800 MG/160 MG 1 TABLET PO (08:42)
[2024-10-17] MEDS: NAPROSYN 500 MG PO (08:42)
[2024-10-17] MEDS: FLOMAX 0.4 MG PO (08:42)
[2024-10-17] MEDS: SODIUM BICARBONATE 1300 MG PO (08:43)
[2024-10-17] MEDS: DITROPAN 5 MG PO (08:43)
--- NOTE | 2024-10-17 10:26 | W.DCSUMMARY ---
Discharge Summary
Discharge Data
Date of Admission: 10/09/24
Date of Discharge: 10/17/24
-
Pending Results: No
Hospital Course
Discharge diagnosis:
Persistent severe right renal and pelvic colic
History of recent multidrug-resistant urinary tract infection and obstructing right ureteral stone with hydronephrosis status post stent placement
Dizziness
Nausea
Acute kidney injury
Asymptomatic bradycardia
Transient epigastric pain
Anxiety
Hepatic steatosis
Consults: urology
Procedures:
10/14/2024 Cystoscopy, right URS/LL/stone extraction/stent exchange
CT abd/pelvis:
1).There is moderate right hydronephrosis and right hydroureter due to presence of a right-sided stent which is in satisfactory position with its proximal loop coiled in the region of the right renal pelvis and distal loop coiled in the urinary
bladder.
No calculi are demonstrated along the course of the right ureteral stent
2).There is a 15 mm calculus/cluster of calculi in the lower pole of the right kidney
3). There is a 3 mm nonobstructing calculus in the lower pole of the left kidney
There is a 2.5 cm cyst in the anterior midportion of the left kidney
There is a 1 mm nonobstructing calculus in the upper pole of the left kidney
4). There are small calculi versus polyps in the gallbladder
Abd US:
Normal appearance of the gallbladder with no evidence for biliary ductal dilation.
Diffuse fatty infiltration of the liver.
Moderate right pelvicalyceal dilation, similar to CT scan of October 09, 2024. Two right-sided nephroliths are identified.
No evidence for left pelvicalyceal dilation.
Echo:
1. Normal left ventricular size and systolic function without regional wall
motion abnormalities. Estimated left ventricular ejection fraction is 60 to
65% by visual estimation. Normal diastolic function.
2. Normal right ventricular size and systolic function.
3. No significant valvular abnormalities.
4. No pericardial effusion.
Hospital course:
54-year-old female with a past medical history of anxiety and recent ESBL positive E. coli UTI and right ureteral stent with hydronephrosis status post stent placement on 09/28/2024 presents with persistent severe right flank and right lower
quadrant pain. Patient was seen in conjunction with urology. Urology recommends conservative management with pain control and antibiotics. Repeat urine analysis on 10/09/2024 was negative
Patient has been taking Bactrim for her ESBL positive E. coli UTI. She was found to have acute kidney injury. Her Bactrim was held, she was given IV fluids. She was treated with IV Zosyn. Her creatinine normalized. Patient was seen in
conjunction with ID, who states the SHRUTI is likely due to NSAID use with poor oral intake. ID transitioned patient back to Bactrim.
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 She also had transient epigastric abdominal pain. Multiple EKGs were nonischemic. Echocardiogram was unremarkable. Her bradycardia resolved.
Patient continued to have severe right-sided flank, right lower quadrant, and right vaginal pain. Urology repeated a cystoscopy, with right ureteral stone extraction and stent exchange on 10/14/2024. She continued to have pain afterwards. Urology
recommends treatment with naproxen and oxybutynin. Her pain became controlled. She is medically stable for discharge. She needs to follow-up with urology in the office in 1-2 weeks for definitive stone management. She can finish the Bactrim that
she has at home.
Disposition: Home self-care
Discharge planning: Required 43 minutes
Discharge Plan
-
Patient Disposition: Home (Routine Discharge)
Discharge Diagnosis/Procedures: Right flank pain, recent complicated urinary tract infection, recent right ureterolithiasis status post stent placement, acute kidney injury, asymptomatic bradycardia
Condition: Good
Diet: Regular
Activity: As tolerated
Driving Restrictions: As prior to admission
Activity Restrictions/Additional Instructions:
Finish the antibiotics you have at home.
Take oxybutynin with naproxen twice a day.
Do not take naproxen on an empty stomach, as this will irritate your stomach.
Follow-up with your primary care doctor in 1 week, urology in the office in 1-2 weeks.
Referrals:
Stew Chau DO [Family Provider] -
Antwan Martínez MD [Active] -
(Please call [facility] to schedule a stent removal in the office with Dr. Martínez in 7-10 days (after your procedure).
This is a 30 second office procedure performed with local anesthetic to remove your stent using a flexible telescope in the bladder by Dr. Martínez.)
Additional Discharge Medication Instructions: Please call [facility] to be scheduled for a stent removal within 7-10 days of your surgery - your stent must stay in place on discharge to facilitate clearing of stone debris from your
kidney (broken up with a laser).
Prescriptions:
New
oxycodone 5 mg Tablet
5 mg PO Q4HPRN PRN (Reason: mod pain) Qty: 30 0RF
acetaminophen [Acetaminophen Extra Strength] 500 mg tablet
1,000 mg PO TIDPRN PRN (Reason: fever or pain) Qty: 60 0RF
oxybutynin chloride 5 mg Tablet
5 mg PO BID 14 Days Qty: 28 0RF
naproxen 500 mg Tablet
500 mg PO BID 14 Days Qty: 28 0RF
Continued
tamsulosin [Flomax] 0.4 mg Capsule
0.4 mg PO DAILY
docusate sodium [Colace] 100 mg Capsule
100 mg PO Q48H
sulfamethoxazole-trimethoprim [Bactrim DS] 800-160 mg tablet
1 tab PO BID
Rx Instructions:
start for 10/02/24 for 14 days
Discontinued
acetaminophen [Tylenol] 325 mg Tablet
650 mg PO Q6HPRN PRN (Reason: mild pain)
ibuprofen [Advil] 200 mg Tablet
200 mg PO BIDPRN PRN (Reason: mild pain)
Discharge Orders:
Discharge Patient (As Directed); Ordered 10/17/24
Ordered By: Franko Villareal
Discharge Date and Time
Print Language: FINNISH
[2024-10-17 15:53] VITALS: BP 113/72
== END 2024-10-17 16:02 | disposition home or self-care (01) | DRG 660 ==
LOC: 3 WEST ACU 15:25
PROVIDERS: Emergency Medicine; Internal Medicine; Surgery; ADMITTING PHYSICIAN Hospitalist; ATTENDING PHYSICIAN Family Medicine; CONSULT PHYSICIAN Student in an Organized Health Care Education/Training Program; EMERGENCY PHYSICIAN Emergency Medicine; FAMILY PHYSICIAN Family Medicine; OTHER PHYSICIAN Internal Medicine Infectious Disease
PROC: 0T768DZ Dilation of Right Ureter with Intraluminal Device, Via Natural or Artificial Opening Endoscopic (ICD-10-PCS; 2024-10-14)
PROC: 0TP98DZ Removal of Intraluminal Device from Ureter, Via Natural or Artificial Opening Endoscopic (ICD-10-PCS; 2024-10-14)
PROC: 0TC68ZZ Extirpation of Matter from Right Ureter, Via Natural or Artificial Opening Endoscopic (ICD-10-PCS; 2024-10-14)
DX: T83.592A Infection and inflammatory reaction due to indwelling ureteral stent, initial encounter (principal); N13.6 Pyonephrosis; N20.2 Calculus of kidney with calculus of ureter; N17.9 Acute kidney failure, unspecified; Z16.24 Resistance to multiple antibiotics; Z16.12 Extended spectrum beta lactamase (ESBL) resistance; Z87.442 Personal history of urinary calculi; F41.9 Anxiety disorder, unspecified; Y83.8 Other surgical procedures as the cause of abnormal reaction of the patient, or of later complication, without mention of misadventure at the time of the procedure; B96.20 Unspecified Escherichia coli [E. coli] as the cause of diseases classified elsewhere; K76.0 Fatty (change of) liver, not elsewhere classified
CPT/HCPCS: 74018; 74176; 76000; 76700; 80048; 80053; 81003; 81015; 82962; 84484; 85025; 85027; 87040; 87086; 93005; 93306; 96361; 96365; 96375; 99284; C1769; C1894; C2617; J1335

== ENCOUNTER → 2025-01-29 10:57 | Outpatient (REF) | payer OTHER, SELFPAY | LOC: HWRAD 10:57 | PROVIDERS: ATTENDING PHYSICIAN Surgery; FAMILY PHYSICIAN Family Medicine | DX: N13.2 Hydronephrosis with renal and ureteral calculous obstruction (principal) | CPT/HCPCS: 76775 ==